=== PATIENT | female | born 1950 | race Caucasian/White ===

== ENCOUNTER 2018-12-29 13:34 | Inpatient (IN) | payer MEDICARE, MEDICAID ==
[2018-12-29] MEDS ORDERED: Acetaminophen 325 MG TAB PO PRN (18:21)
[2018-12-29] MEDS: Clindamycin 150 MG CAP PO SCH (20:27)
[2018-12-29] MEDS: hydrALAZINE 10 MG TAB PO SCH (20:28)
[2018-12-29] MEDS: Potassium Chloride 10 MEQ TAB PO SCH (20:28)
[2018-12-29] MEDS: Famotidine 20 MG TAB PO SCH (20:28)
[2018-12-29] MEDS ORDERED: Prevnar 13-Val Conj/PF 0.5 ML SYRINGE IM ONE (21:00)
[2018-12-29] MEDS: Lantus 1000 UNITS/10 ML VIAL SC SCH (21:19)
[2018-12-29] MEDS ORDERED: Acetaminophen 325 MG TAB PO SCH (23:59)
[2018-12-30] MEDS: Clindamycin 150 MG CAP PO SCH ×4 (03:04→22:16)
[2018-12-30] MEDS: Acetaminophen 325 MG TAB PO PRN ×2 (03:35→10:40)
[2018-12-30 05:25] LABS: ALT (SGPT) 27 U/L (8-55); AST (SGOT) 33 U/L (5-34); Albumin 3.4 g/dL (3.4-4.8); Alkaline Phosphatase 65 U/L (40-150); Anion Gap 13 mmol/L (10-20); BUN (Urea Nitrogen) 12 mg/dL (9.8-20.1); Bilirubin, Total 0.3 mg/dL (0.2-1.2); Calc. Creatinine Clearance 155 mL/min (70-130); Calcium 9.5 mg/dL (7.8-10.44); Carbon Dioxide 29 mmol/L (23-31); Cardiac Risk 4.8 (Less than 4.5); Chloride 102 mmol/L (98-107); Cholesterol 111 mg/dl (< 200 Desired); Estimated GFR-MDRD 62; Glucose 171 mg/dL (80-115); HDL Cholesterol 23 mg/dL (>60 Neg Risk); LDL Cholesterol, Calculated 48 mg/dL; Potassium 3.8 mmol/L (3.5-5.1); Protein, Total 6.4 g/dL (6.0-8.3); Sodium 140 mmol/L (136-145); Triglycerides 202 mg/dL (Less than 150)
[2018-12-30 05:35] LABS: Eosinophils 3 % (0-10); Hemoglobin 12.2 g/dL (12.0-16.0); Hypochromia MODERATE=16-30 cells (100X) (0-5/hpf); Lymphocytes 21 % (21-51); MDiff Complete? YES; Mean Corpuscular HGB CONC 31.4 g/dL (32.0-36.0); Mean Corpuscular Hemoglobin 28.4 pg (27.0-31.0); Mean Corpuscular Volume 90.5 fL (78.0-98.0); Mean Platelet Volume 6.5 fL (7.4-10.4); Monocytes 9 % (0-10); Neutrophil 65 % (42-75); Platelet Count 244 thou/uL (130-400); Platelet Morphology Comment Appears Adequate; RBC Distribution Width 12.7 % (11.5-14.5); RBC Morphology Abnormal; Reactive Lymphocytes 2 % (0-10); White Blood Cell (WBC) Count 5.9 thou/uL (4.8-10.8)
--- NOTE | 2018-12-30 07:59 | HP ---
Admitted at [facility] on 12/29/2018. CHIEF COMPLAINT: Weak following the hospitalization for cellulitis of her pannus. HISTORY OF PRESENT ILLNESS: The patient is a 68-year-old white female, who has a history of hypertension, diabetes type 2, and morbid obesity. She lives in a trailer home by herself and is home confined due to her massive obesity. She can ambulate by holding onto furniture and using a quad walker within her home and able to prepare food that is brought in for her from the food delivery service and her neighbors. The patient has been monitoring her blood pressure, which she said has been very good and she also monitors her blood sugars which were usually running around 115. The patient said that she had developed a fever low grade that gradually chucho to 102, accompanied by extreme weakness and fatigue along with swelling and redness and pain in her abdominal pannus. She called 911 and was taken to [facility] and hospitalized there from 12/24/2018 until 12/29/2018, for a panniculitis involving the right lower abdomen and right inguinal area. She was treated with IV Zosyn and vancomycin. Her blood cultures had no growth x2. She had a urine culture on admission of E. coli with colony count greater than 100,000 with a zhang-sensitivity. The patient showed marked improvement and was switched to oral antibiotics, receiving clindamycin 300 mg every 8 hours. The patient was left very weak and is with marked decline in her functional capabilities such that she would be unable to take care of herself back in her home. Consequently, she was transferred to [facility] for continued care, physical therapy and occupational therapy in an effort to try to improve her general strength and functional capabilities and also to explore post-hospital options other than just returning to her home, where she is by herself with difficulty maintaining. The patient was seen in her room soon after her admission. She was sitting on the side of the bed and in very good spirits and was able to visit with me and relate to me the history what had had happened bringing her in the hospital as outlined above. The patient says she feels a lot better. She has had no more fever. The swelling and redness over the right side of the pannus and ankle areas all gone away. She has been treated in the past for this on several occasions, but this is the first time in several years that this has occurred. PAST MEDICAL HISTORY: Diabetes type 2, the patient's home glucoses are running around 115. Her last hemoglobin A1c was in February 2016 was 7.1. The patient has hypertension and morbid obesity with her maximum weight being around 440. She said she has gradually lost down to this present weight of 355. The patient has a history of hypothyroidism; seborrheic dermatitis, particularly of the ears; history of depression; hyperlipidemia; history of a large ventral hernia; GERD; and fibromyalgia. She has had a right breast biopsy years ago that was benign and only showed fibrocystic changes. She has had a tonsillectomy, cholecystectomy, colonoscopy years ago and EGD that were unremarkable. PRESENT MEDICATIONS: 1. KCl 10 mEq b.i.d. 2. Metformin 1000 mg b.i.d. 3. Glipizide 10 mg b.i.d. 4. Venlafaxine ER 150 mg daily. 5. Rosuvastatin (Crestor) 40 mg daily. 6. Amlodipine 5 mg daily. 7. Acetaminophen 650 mg every 6 hours as needed. 8. Hydralazine 10 mg b.i.d. 9. Levothyroxine 175 mcg daily. 10. Losartan/hydrochlorothiazide 100/12.5 daily. 11. Levemir 10 units subcu daily at bedtime. 12. Aspirin 81 mg daily. 13. Ranitidine 150 mg b.i.d. 14. Clindamycin 300 mg t.i.d., started on 12/29/2018 and will need to continue for a minimum of 10 days. ALLERGIES: CYMBALTA, LYRICA. LYRICA CAUSES SWELLING IN HER FEET. REVIEW OF SYSTEMS: GENERAL: The patient said that she has gradually been losing weight. Her maximum weight was around 440 and now she is down to 355. HEAD AND NECK: No complaints. PULMONARY: No shortness of breath with sitting or lying around. She gets a little winded with exertion. CARDIOVASCULAR: No chest pain. GI: No nausea or vomiting. The patient denies any problems with her bowels. The patient has a very large ventral hernia that she says does not hurt her, but she thinks it has gotten a little bit larger. : No complaints. ENDOCRINE: The patient says she checks her blood sugars fasting, and usually they run around 115. MUSCULOSKELETAL: The patient says she has trouble with her knees and says that if she walks very much, they get very sore. She gets around with the aid of holding on furniture and with the aid of a quad cane at home. She said the therapists at [facility] mentioned that she is not able to fully extend her legs. ADLs: The patient ambulates with holding onto her furniture in her trailer home and with a quad cane, but only short distances. She is able to feed herself. She is continent of urine and stools. She is able to dress herself. Bathe herself by sponge bathing. HABITS: Alcohol, none. Tobacco, none. SOCIAL HISTORY: The patient lives in a trailer home. She was living there with a brother and a sister, both who have . Now, she is there by herself. She has food that is brought to her by the [employer]. Her neighbors also pickle solution maker food and bring to her and the patient does not leave the home because of inability physically. CODE STATUS: DNR. PHYSICAL EXAMINATION: GENERAL: Shows a very friendly 68-year-old white female, who is sitting up on the side of her bed, eating her supper. She is very talkative, oriented to time, place, situation, and recognizes me and correctly calls my name. She appears in no distress. VITAL SIGNS: Shows a temperature of 97.6, pulse of 100, respirations 18, O2 saturation 95%, and blood pressure 144/79. Her weight was 355. Her height is 5 feet and 2 inches. HEENT: Head, normocephalic and atraumatic. Eyes, pupils are equal, round, and reactive. Ears, the patient has some more redness and scaling on the pinna. The TMs are clear. Her nose normal. Mouth and throat normal. NECK: Carotids are equal and strong. No bruits. LUNGS: Clear. HEART: Regular rate. No murmurs. ABDOMEN: Very obese, could not feel any organomegaly. The patient has a very large ventral hernia that is located in the midline and toward the right lower side of the abdomen. There is no overlying redness. It measures approximately 36 x 30 cm. I can hear bowel sounds within the hernia. The hernias are incarcerated. The patient has a large abdominal pannus. The lower portion has changes in the skin that is called peau d'orange, the area where the patient had the cellulitis was on the right inguinal area that extended up onto the right side and inferior aspect of the pannus. This has all resolved. This area is just pink, but is not tender. There is no induration. LOWER EXTREMITIES: There is no edema. The knees cannot fully extend. Her feet are warm. The pulses, dorsalis pedis are 2+ bilateral, did not feel the posterior tibialis. She has some thickening keratotic changes along the medial aspect of the right big toe. IMPRESSION: 1. Generalized weakness and deconditioning. a. The patient had weakness from her massive obesity and osteoarthritis of her knees prior to admission, but with the admission, she has had an increase in her deconditioning and decline in her functional capabilities. b. Requires assistance with her ADLs. 2. Hospitalized at [facility] from 12/24 to 12/29 for panniculitis, treated with 5 days of IV vancomycin and Zosyn and then switched to oral clindamycin. 3. Morbid obesity. a. Maximum weight of 440, now down to 360. b. Complicated by generalized weakness and severe gait abnormality. c. Complicated by severe deconditioning. d. Requiring assistance with all her instrumental ADLs. 4. Hypertension. 5. Diabetes, type 2. 6. Hypothyroidism. 7. Large incarcerated ventral hernia. a. Presently asymptomatic. 8. Panniculitis. a. Required hospitalization from 12/24/2018 to 12/29/2018. b. Resolving now on oral antibiotics as of 12/29/2018. 9. Depression, well controlled. 10. Fibromyalgia. a. Controlled. 11. Hyperlipidemia. 12. Seborrheic dermatitis involving the ears. 13. Severe gait abnormality. a. Secondary to the massive obesity. b. Secondary to osteoarthritis of the knees. PLAN: The patient has been admitted to [facility], where she will undergo physical therapy and occupational therapy in an effort to try to improve her functional capabilities. We will also get Occupational Therapist [facility] to visit with her to explore possible other post-hospital arrangements for her since she is a little insecure on her present situation. We will place her on DVT prophylaxis. See orders. Job ID: [id number] [facility]
[2018-12-30] MEDS: Ketoconazole 2% Cream 15 gm Tube TOP SCH ×2 (08:15→20:01)
[2018-12-30] MEDS: Rosuvastatin 10 MG TAB PO SCH (08:15)
[2018-12-30] MEDS: Aspirin Chewable 81 MG TAB PO SCH (08:15)
[2018-12-30] MEDS: Enoxaparin Sodium 40 MG/0.4 ML SYRINGE SC SCH (08:15)
[2018-12-30] MEDS: metFORMIN 500 MG TAB PO SCH ×2 (08:16→17:22)
[2018-12-30] MEDS: glipiZIDE 5 MG TAB PO SCH ×2 (08:16→17:22)
[2018-12-30] MEDS: Amlodipine 5 MG TAB PO SCH (08:17)
[2018-12-30] MEDS: Venlafaxine HCl XR 150 MG CAP PO SCH (08:17)
[2018-12-30] MEDS: Hydrochlorothiazide 25 MG TAB PO SCH (08:17)
[2018-12-30] MEDS: Potassium Chloride 10 MEQ TAB PO SCH ×2 (08:18→20:02)
[2018-12-30] MEDS: hydrALAZINE 10 MG TAB PO SCH ×2 (08:18→20:00)
[2018-12-30] MEDS: Famotidine 20 MG TAB PO SCH ×2 (08:19→20:00)
[2018-12-30] MEDS: Levothyroxine Sodium 100 MCG TAB PO SCH (08:19)
[2018-12-30] MEDS: Levothyroxine Sodium 75 MCG TAB PO SCH (08:20)
[2018-12-30] MEDS: Losartan 25 MG TAB PO SCH (08:20)
[2018-12-30] MEDS ORDERED: Prevnar 13-Val Conj/PF 0.5 ML SYRINGE IM ONE (09:00)
--- NOTE | 2018-12-30 09:38 | PRG ---
DATE OF SERVICE: 12/30/2018 SUBJECTIVE: The patient says she is doing good this morning. She has had a good night. She is looking forward beginning physical therapy. She is wondering how her knees will react to the therapy since she has had trouble with these knees for a long time. OBJECTIVE: GENERAL: The patient is lying in bed, looks very comfortable. Is talkative, and appears in no distress. VITAL SIGNS: Her temperature is 97, pulse 68, respirations 20, O2 saturation 93 % on room air, and blood pressure 153/77. LUNGS: Clear. HEART: Regular rate. ABDOMEN: The right side of the pannus extending into the inguinal area on the right leg. SKIN: Appears normal. There is no redness nor pinkness nor induration. EXTREMITIES: Lower extremities, no edema. LABORATORY DATA: Her lab H and H is 12.2 and 38.9, white blood cell count 5900 with 65% segs, 21% lymphocytes, platelet count of 244,000. Her sodium is 140, potassium 3.8, BUN 12, creatinine 0.91, GFR 62, FBS 171. Her FBS this morning was 158. Her cholesterol 111, triglycerides 202, LDL 48, TSH 8.2, hemoglobin A1c pending. ASSESSMENT: 1. Generalized weakness and deconditioning. a. The patient had weakness from her massive obesity and osteoarthritis of her knees prior to admission, but with the admission, she has had an increase in her deconditioning and decline in her functional capabilities. b. Requires assistance with her ADLs. c. Physical Therapy will begin this morning of 12/30/2018. 2. Hospitalized at [facility] from 12/24 to 12/29 for panniculitis, treated with 5 days of IV vancomycin and Zosyn and then switched to oral clindamycin. 3. Morbid obesity. a. Maximum weight of 440, now down to 360. b. Complicated by generalized weakness and severe gait abnormality. c. Complicated by severe deconditioning. d. Requiring assistance with all her instrumental ADLs. 4. Hypertension. 5. Diabetes, type 2. 6. Hypothyroidism. 7. Large incarcerated ventral hernia. a. Presently asymptomatic. 8. Panniculitis. a. Required hospitalization from 12/24/2018 to 12/29/2018. b. Resolving now on oral antibiotics as of 12/29/2018. c. Resolved with no signs of recurrence as of 12/30/2018. 9. Depression, well controlled. 10. Fibromyalgia. a. Controlled. 11. Hyperlipidemia. 12. Seborrheic dermatitis involving the ears. 13. Severe gait abnormality. a. Secondary to the massive obesity. b. Secondary to osteoarthritis of the knees. 14. Bilateral knee pain with weightbearing, probably secondary to arthritis. PLAN: We will continue present care. We will complete the 10-day course of clindamycin. PT and OT will work with her. We will x-ray both knees and just see how advanced her arthritis is. Job ID: [id number] [facility]
--- NOTE | 2018-12-30 09:40 | RAD ---
THREE VIEWS OF THE RIGHT KNEE: DATE: 12/30/2018. COMPARISON: None. HISTORY: Pain with weight bearing. FINDINGS: There is moderate lateral compartment narrowing. There is severe medial compartment narrowing. Ther e is prominent osteophyte formation of the medial and lateral tibial plateau and the medial and later al femoral condyle. No acute fracture or evidence of dislocation is seen. There is severe patellofe moral joint space narrowing with bulky osteophytosis. No knee joint effusion. IMPRESSION: Severe multicompartment degenerative joint disease of right knee. POS: [facility]
--- NOTE | 2018-12-30 09:49 | RAD ---
THREE VIEWS LEFT KNEE: INDICATION: Left knee pain. COMPARISON: None. FINDINGS: There is left knee osteoarthrosis, particularly involving the medial femoral tibial patellofemoral co mpartments. No joint capsular distention is evident. No acute fracture is demonstrated. IMPRESSION: Severe osteoarthrosis of the left knee. POS: [facility]
[2018-12-30 12:17] LABS: Hemoglobin A1c 7.5 % (4.0-6.0)
[2018-12-30] MEDS ORDERED: Ondansetron ODT 4 MG TAB PO PRN (15:02)
[2018-12-30] MEDS: traMADol HCl 50 MG TAB PO PRN (15:11)
[2018-12-30] MEDS: Lantus 1000 UNITS/10 ML VIAL SC SCH (19:59)
[2018-12-31] MEDS: Clindamycin 150 MG CAP PO SCH ×3 (06:00→22:11)
[2018-12-31] MEDS: glipiZIDE 5 MG TAB PO SCH ×2 (09:05→17:13)
[2018-12-31] MEDS: Aspirin Chewable 81 MG TAB PO SCH (09:06)
[2018-12-31] MEDS: Amlodipine 5 MG TAB PO SCH (09:06)
[2018-12-31] MEDS: Potassium Chloride 10 MEQ TAB PO SCH ×2 (09:07→22:12)
[2018-12-31] MEDS: Venlafaxine HCl XR 150 MG CAP PO SCH (09:07)
[2018-12-31] MEDS: Levothyroxine Sodium 75 MCG TAB PO SCH (09:07)
[2018-12-31] MEDS: Hydrochlorothiazide 25 MG TAB PO SCH (09:07)
[2018-12-31] MEDS: Levothyroxine Sodium 100 MCG TAB PO SCH (09:07)
[2018-12-31] MEDS: hydrALAZINE 10 MG TAB PO SCH ×2 (09:08→22:12)
[2018-12-31] MEDS: metFORMIN 500 MG TAB PO SCH ×2 (09:08→17:13)
[2018-12-31] MEDS: Losartan 25 MG TAB PO SCH (09:09)
[2018-12-31] MEDS: Enoxaparin Sodium 40 MG/0.4 ML SYRINGE SC SCH (09:09)
[2018-12-31] MEDS: Rosuvastatin 10 MG TAB PO SCH (09:09)
[2018-12-31] MEDS: Glucosamine/D3/Boswellia Serra [Glucosamine Daily Complex Tab] PO SCH (09:10)
[2018-12-31] MEDS: Ketoconazole 2% Cream 15 gm Tube TOP SCH ×2 (09:10→22:13)
[2018-12-31] MEDS: Famotidine 20 MG TAB PO SCH ×2 (09:13→22:13)
--- NOTE | 2018-12-31 11:42 | PRG ---
DATE OF SERVICE: 12/31/2018 SUBJECTIVE: The patient said she has had a lot of pain in her left hip, particularly if she has to sit up for any length of time. The patient said she was having trouble with this before this recent hospitalization. The patient said she did work with Physical Therapy yesterday and she was able to walk 15-feet and required minimal help with transfer and required supervision OBJECTIVE: GENERAL: The patient is lying in bed. She looks a little uncomfortable. VITAL SIGNS: Her temperature is 96.8, pulse 88, respirations 18, O2 saturation 93% on room air, blood pressure 138/62. LUNGS: Clear. HEART: Regular rate. ABDOMEN: The pannus of the abdomen has no redness. There is no swelling on that right lower anterior aspect nor any redness in the inguinal area. She still has incarcerated ventral hernia, which is nontender. LABORATORY DATA: Her FBS was 142, TSH 8.2, hemoglobin A1c 7.5. IMAGING DATA: X-ray of the knees, right knee showed severe multicompartment degenerative joint disease. Left knee also showed severe arthritis of the left knee. ASSESSMENT: 1. Generalized weakness and deconditioning. a. The patient had weakness from her massive obesity and osteoarthritis of her knees prior to admission, but with the admission, she has had an increase in her deconditioning and decline in her functional capabilities. b. Requires assistance with her ADLs. c. Improved. Has been able to walk up to 30 feet as of 12/31/2018. 2. Hospitalized at [facility] from 12/24 to 12/29 for panniculitis, treated with 5 days of IV vancomycin and Zosyn and then switched to oral clindamycin. 3. Morbid obesity. a. Maximum weight of 440, now down to 360. b. Complicated by generalized weakness and severe gait abnormality. c. Complicated by severe deconditioning. d. Requiring assistance with all her instrumental ADLs. e. Complicated by severe inched arthritis of the knees that are now bone on bone. 4. Hypertension. 5. Diabetes, type 2. a. Controlled with hemoglobin A1c of 7.5. 6. Hypothyroidism. 7. Large incarcerated ventral hernia. a. Presently asymptomatic. 8. Panniculitis. a. Required hospitalization from 12/24/2018 to 12/29/2018. b. Resolving now on oral antibiotics as of 12/29/2018. c. Resolved with no signs of recurrence as of 12/31/2018. 9. Depression, well controlled. 10. Fibromyalgia. a. Controlled. 11. Hyperlipidemia. 12. Seborrheic dermatitis involving the ears. 13. Severe gait abnormality. a. Secondary to the massive obesity. b. Secondary to osteoarthritis of the knees. 14. Severe osteoarthritis of the knees that are bone on bone, right worse than the left. 15. Left hip pain. PLAN: We will continue PT. The patient will have limited ability to walk any distance due to her severe arthritis. We will have to be cautious that the physical therapy does not aggravate her arthritis. Presently, she is having a lot of left hip pain. We will x-ray the hip. Suspect that this will also show advanced arthritic change. Job ID: [id number] [facility]
--- NOTE | 2018-12-31 15:18 | RAD ---
TWO VIEW LEFT HIP: INDICATION: Chronic hip pain. FINDINGS: There is moderate osteoarthritis of the left hip with joint space narrowing and osteophytosis. No fr acture or dislocation. IMPRESSION: Moderate left hip joint osteoarthritis. POS: [facility]
[2018-12-31] MEDS: Acetaminophen 325 MG TAB PO PRN (18:12)
[2018-12-31] MEDS: Lantus 1000 UNITS/10 ML VIAL SC SCH (22:10)
[2019-01-01] MEDS: Clindamycin 150 MG CAP PO SCH ×3 (05:29→21:06)
[2019-01-01] MEDS: Levothyroxine Sodium 75 MCG TAB PO SCH (08:53)
[2019-01-01] MEDS: Potassium Chloride 10 MEQ TAB PO SCH ×2 (08:53→21:07)
[2019-01-01] MEDS: glipiZIDE 5 MG TAB PO SCH ×2 (08:53→17:01)
[2019-01-01] MEDS: Acetaminophen 325 MG TAB PO PRN ×2 (08:54→18:58)
[2019-01-01] MEDS: metFORMIN 500 MG TAB PO SCH ×2 (08:54→17:01)
[2019-01-01] MEDS: Levothyroxine Sodium 100 MCG TAB PO SCH (08:54)
[2019-01-01] MEDS: Hydrochlorothiazide 25 MG TAB PO SCH (08:54)
[2019-01-01] MEDS: Losartan 25 MG TAB PO SCH (08:55)
[2019-01-01] MEDS: Famotidine 20 MG TAB PO SCH ×2 (08:55→21:07)
[2019-01-01] MEDS: hydrALAZINE 10 MG TAB PO SCH ×2 (08:55→21:07)
[2019-01-01] MEDS: Enoxaparin Sodium 40 MG/0.4 ML SYRINGE SC SCH (08:56)
[2019-01-01] MEDS: Amlodipine 5 MG TAB PO SCH (08:56)
[2019-01-01] MEDS: Aspirin Chewable 81 MG TAB PO SCH (08:56)
[2019-01-01] MEDS: Rosuvastatin 10 MG TAB PO SCH (08:56)
[2019-01-01] MEDS: Glucosamine/D3/Boswellia Serra [Glucosamine Daily Complex Tab] PO SCH (08:57)
[2019-01-01] MEDS: Ketoconazole 2% Cream 15 gm Tube TOP SCH ×2 (08:58→21:06)
[2019-01-01] MEDS: Venlafaxine HCl XR 150 MG CAP PO SCH (08:58)
[2019-01-01] MEDS: Lantus 1000 UNITS/10 ML VIAL SC SCH (21:07)
[2019-01-02] MEDS: Clindamycin 150 MG CAP PO SCH ×3 (06:05→22:11)
[2019-01-02] MEDS: metFORMIN 500 MG TAB PO SCH ×2 (08:18→16:38)
[2019-01-02] MEDS: Acetaminophen 325 MG TAB PO PRN (08:18)
[2019-01-02] MEDS: glipiZIDE 5 MG TAB PO SCH ×2 (08:18→16:38)
[2019-01-02] MEDS: Amlodipine 5 MG TAB PO SCH (09:09)
[2019-01-02] MEDS: Aspirin Chewable 81 MG TAB PO SCH (09:10)
[2019-01-02] MEDS: Enoxaparin Sodium 40 MG/0.4 ML SYRINGE SC SCH (09:11)
[2019-01-02] MEDS: hydrALAZINE 10 MG TAB PO SCH ×2 (09:12→22:09)
[2019-01-02] MEDS: Famotidine 20 MG TAB PO SCH ×2 (09:12→22:09)
[2019-01-02] MEDS: Hydrochlorothiazide 25 MG TAB PO SCH (09:13)
[2019-01-02] MEDS: Ketoconazole 2% Cream 15 gm Tube TOP SCH ×2 (09:14→22:12)
[2019-01-02] MEDS: Levothyroxine Sodium 100 MCG TAB PO SCH (09:15)
[2019-01-02] MEDS: Levothyroxine Sodium 75 MCG TAB PO SCH (09:15)
[2019-01-02] MEDS: Losartan 25 MG TAB PO SCH (09:16)
[2019-01-02] MEDS: Glucosamine/D3/Boswellia Serra [Glucosamine Daily Complex Tab] PO SCH (09:17)
[2019-01-02] MEDS: Potassium Chloride 10 MEQ TAB PO SCH ×2 (09:17→22:10)
[2019-01-02] MEDS: Venlafaxine HCl XR 150 MG CAP PO SCH (09:18)
[2019-01-02] MEDS: Rosuvastatin 10 MG TAB PO SCH (09:18)
[2019-01-02] MEDS: Calcium Carbonate 500 MG ChewTAB PO PRN ×2 (14:41→18:59)
[2019-01-02] MEDS: Lantus 1000 UNITS/10 ML VIAL SC SCH (22:11)
[2019-01-03] MEDS: Clindamycin 150 MG CAP PO SCH ×4 (05:22→20:19)
[2019-01-03] MEDS: Glucosamine/D3/Boswellia Serra [Glucosamine Daily Complex Tab] PO SCH (08:20)
[2019-01-03] MEDS: Losartan 25 MG TAB PO SCH (08:21)
[2019-01-03] MEDS: Potassium Chloride 10 MEQ TAB PO SCH ×2 (08:21→20:19)
[2019-01-03] MEDS: glipiZIDE 5 MG TAB PO SCH ×2 (08:22→17:19)
[2019-01-03] MEDS: Amlodipine 5 MG TAB PO SCH (08:22)
[2019-01-03] MEDS: metFORMIN 500 MG TAB PO SCH ×2 (08:22→17:19)
[2019-01-03] MEDS: Levothyroxine Sodium 75 MCG TAB PO SCH (08:22)
[2019-01-03] MEDS: Levothyroxine Sodium 100 MCG TAB PO SCH (08:22)
[2019-01-03] MEDS: hydrALAZINE 10 MG TAB PO SCH ×2 (08:23→20:19)
[2019-01-03] MEDS: Famotidine 20 MG TAB PO SCH (08:23)
[2019-01-03] MEDS: Hydrochlorothiazide 25 MG TAB PO SCH (08:23)
[2019-01-03] MEDS: Aspirin Chewable 81 MG TAB PO SCH (08:23)
[2019-01-03] MEDS: Ketoconazole 2% Cream 15 gm Tube TOP SCH ×2 (08:24→20:20)
[2019-01-03] MEDS: Venlafaxine HCl XR 150 MG CAP PO SCH (08:24)
[2019-01-03] MEDS: Rosuvastatin 10 MG TAB PO SCH (08:24)
[2019-01-03] MEDS: Enoxaparin Sodium 40 MG/0.4 ML SYRINGE SC SCH (08:24)
[2019-01-03] MEDS: Acetaminophen 325 MG TAB PO PRN (10:26)
[2019-01-03] MEDS: Calcium Carbonate 500 MG ChewTAB PO PRN (12:22)
--- NOTE | 2019-01-03 12:23 | PRG ---
DATE OF SERVICE: 01/01/2019 SUBJECTIVE: The patient says she is doing good. She said that she is working with Physical Therapy and she uses a walker to help ambulate. Yesterday, she walked 30 feet x2 with the use of a rolling walker and standby assistance. She transfers with standby assistance. The patient said they did get a large reclining chair which she can sit in and she is a lot more comfortable. Yesterday, she spent 3 hours in the chair. These are a lot more comfortable than the smaller chairs and allow her to sit for longer periods. OBJECTIVE: GENERAL: The patient is lying in bed. She is alert, talkative, appears very comfortable. VITAL SIGNS: Temperature 97.1, pulse 68, respirations 18, O2 saturation 94% on room air, blood pressure 124/62. LUNGS: Clear. HEART: Regular rate. EXTREMITIES: No edema. The pannus has no redness. Her weight is stable at 355. IMAGING STUDIES: X-ray of her left hip showed moderate arthritis of the hip. ASSESSMENT: 1. Generalized weakness and deconditioning. a. The patient had weakness from her massive obesity and osteoarthritis of her knees prior to admission, but with the admission, she has had an increase in her deconditioning and decline in her functional capabilities. b. Requires assistance with her ADLs. c. Improved, he has been able to walk up to 30 feet x2 with a rolling walker and transfer with standby assistance as of 01/01/2019. 2. Hospitalized at [facility] from 12/24 to 12/29 for panniculitis, treated with 5 days of IV vancomycin and Zosyn and then switched to oral clindamycin. 3. Morbid obesity. a. Maximum weight of 440, now down to 360. b. Complicated by generalized weakness and severe gait abnormality. c. Complicated by severe deconditioning. d. Requiring assistance with all her instrumental ADLs. e. Complicated by severe osteoarthritis of the knees that are bone on bone, right worse than left. f. Complicated by moderate arthritis of the left hip. 4. Hypertension. 5. Diabetes, type 2. a. Controlled with hemoglobin A1c of 7.5. 6. Hypothyroidism. 7. Large incarcerated ventral hernia. a. Presently asymptomatic. 8. Panniculitis. a. Required hospitalization from 12/24/2018 to 12/29/2018. b. Resolving now on oral antibiotics as of 12/29/2018. c. Resolved with no signs of recurrence as of 01/01/2019. 9. Depression, well controlled. 10. Fibromyalgia. a. Controlled. 11. Hyperlipidemia. 12. Seborrheic dermatitis involving the ears. 13. Severe gait abnormality. a. Secondary to the massive obesity. b. Secondary to osteoarthritis of the knees. 14. Severe osteoarthritis of the knees that are bone on bone, right worse than the left. 15. Left hip pain. a. Secondary to moderate arthritis in the left hip. b. Pain improved as of 01/01/2019. PLAN: The patient is doing better as she continues to work to try to reduce her weight. She is doing well with Physical Therapy. The patient should continue to work within her tolerance of what the arthritis in the knees and hip will allow. At this time, she is not a good candidate for any type of operative intervention. She has had no signs of any recurrence of the panniculitis. Job ID: [id number] [facility]
--- NOTE | 2019-01-03 12:25 | PRG ---
DATE OF SERVICE: 01/03/2019 SUBJECTIVE: The patient says she is doing pretty good. She said she is having some acid reflux. She said at home she takes the Zantac instead of the Pepcid and it works better. While in the hospital at [facility], she received pantoprazole that seemed to also work well. This Pepcid is not working as well. Her left hip is a little better today. This is something she has had trouble with for quite a while with too much activity, she has more pain. She has visit with [employer] and will revisit again with them again exploring help in the home and also other arrangements such as long term. OBJECTIVE: GENERAL: The patient is sitting up in bed, alert, talkative, appears very comfortable, in no distress. VITAL SIGNS: Her temp is 97.6, pulse 82, respirations 20, O2 saturation 95%, blood pressure was 176/104, repeat was 158/123, suspect there was some air in this. The patient has such large arms, even the large cuff may give some fictitious readings. Her previous blood pressure readings have been in 156/65 and 140s, 130s, 120s systolic. We will just observe this. I suspect it is more cuff related. LUNGS: Clear. HEART: Has regular rate. ABDOMEN: She has the incarcerated ventral hernia, but it is nontender, seems a little smaller than what it had been. The pannus has a pink rubor with dependency and some mild Peau d'orange changes to the dependent areas of the skin. There is no increased heat nor is there any bright redness. LOWER EXTREMITIES: There is no edema. LABORATORY DATA: FBS this morning 133. ASSESSMENT: 1. Generalized weakness and deconditioning. a. The patient had weakness from her massive obesity and osteoarthritis of her knees prior to admission, but with the admission, she has had an increase in her deconditioning and decline in her functional capabilities. b. Requires assistance with her ADLs. c. Improved. Has been able to walk up to 30 feet as of 01/03/2019. 2. Hospitalized at [facility] from 12/24 to 12/29 for panniculitis, treated with 5 days of IV vancomycin and Zosyn and then switched to oral clindamycin. 3. Morbid obesity. a. Maximum weight of 440, now down to 360. b. Complicated by generalized weakness and severe gait abnormality. c. Complicated by severe deconditioning. d. Requiring assistance with all her instrumental ADLs. e. Complicated by severe inched arthritis of the knees that are now bone on bone. f. Complicated by moderate with symptomatic arthritis of the left hip. 4. Hypertension. a. Blood pressure reading high this morning, probably secondary to cuff size with the patient's very obese arms as of 01/03/2019. 5. Diabetes, type 2. a. Controlled with hemoglobin A1c of 7.5. 6. Hypothyroidism. 7. Large incarcerated ventral hernia. a. Presently asymptomatic. 8. Panniculitis. a. Required hospitalization from 12/24/2018 to 12/29/2018. b. Resolving now on oral antibiotics as of 12/29/2018. c. Resolved with no signs of recurrence as of 01/03/2019. 9. Depression, well controlled. 10. Fibromyalgia. a. Controlled. 11. Hyperlipidemia. 12. Seborrheic dermatitis involving the ears. 13. Severe gait abnormality. a. Secondary to the massive obesity. b. Secondary to osteoarthritis of the knees. 14. Severe osteoarthritis of the knees that are bone on bone, right worse than the left. 15. Moderate symptomatic arthritis of the left hip. 16. Gastroesophageal reflux disease. a. Mild increased symptoms on the Pepcid, previously controlled on Zantac and pantoprazole. PLAN: Continue present care. Physical Therapy will continue to work with her. We will have to be cautious and try to seek a point of improvement without aggravating her arthritis. She, at this point, would be a very poor surgical candidate with her size. We will stop the Pepcid and place her on Protonix since she has had some increased symptoms. [employer] will continue to work with her to explore post hospital care. We will place the patient on pantoprazole and stop the Pepcid. Job ID: [id number] [facility]
[2019-01-03] MEDS: Lantus 1000 UNITS/10 ML VIAL SC SCH (20:20)
[2019-01-04] MEDS: Clindamycin 150 MG CAP PO SCH ×3 (05:40→21:27)
[2019-01-04] MEDS: Calcium Carbonate 500 MG ChewTAB PO PRN ×2 (06:14→12:51)
[2019-01-04] MEDS: Acetaminophen 325 MG TAB PO PRN ×2 (09:13→22:52)
[2019-01-04] MEDS: Rosuvastatin 10 MG TAB PO SCH (09:13)
[2019-01-04] MEDS: Levothyroxine Sodium 75 MCG TAB PO SCH (09:14)
[2019-01-04] MEDS: Losartan 25 MG TAB PO SCH (09:14)
[2019-01-04] MEDS: Levothyroxine Sodium 100 MCG TAB PO SCH (09:14)
[2019-01-04] MEDS: glipiZIDE 5 MG TAB PO SCH ×2 (09:15→17:19)
[2019-01-04] MEDS: metFORMIN 500 MG TAB PO SCH ×2 (09:15→17:19)
[2019-01-04] MEDS: Aspirin Chewable 81 MG TAB PO SCH (09:15)
[2019-01-04] MEDS: Potassium Chloride 10 MEQ TAB PO SCH ×2 (09:16→21:27)
[2019-01-04] MEDS: hydrALAZINE 10 MG TAB PO SCH ×2 (09:16→21:28)
[2019-01-04] MEDS: Amlodipine 5 MG TAB PO SCH (09:16)
[2019-01-04] MEDS: Venlafaxine HCl XR 150 MG CAP PO SCH (09:16)
[2019-01-04] MEDS: Enoxaparin Sodium 40 MG/0.4 ML SYRINGE SC SCH (09:17)
[2019-01-04] MEDS: Ketoconazole 2% Cream 15 gm Tube TOP SCH ×2 (09:17→21:28)
[2019-01-04] MEDS: Hydrochlorothiazide 25 MG TAB PO SCH (09:18)
[2019-01-04] MEDS: Glucosamine/D3/Boswellia Serra [Glucosamine Daily Complex Tab] PO SCH (09:18)
[2019-01-04] MEDS: Lantus 1000 UNITS/10 ML VIAL SC SCH (21:30)
[2019-01-05] MEDS: Clindamycin 150 MG CAP PO SCH ×3 (05:44→21:01)
[2019-01-05] MEDS ORDERED: Levothyroxine Sodium 75 MCG TAB PO SCH (07:45)
[2019-01-05] MEDS ORDERED: Levothyroxine Sodium 100 MCG TAB PO SCH (07:45)
[2019-01-05] MEDS: Amlodipine 5 MG TAB PO SCH (08:27)
[2019-01-05] MEDS: Rosuvastatin 10 MG TAB PO SCH (08:27)
[2019-01-05] MEDS: Aspirin Chewable 81 MG TAB PO SCH (08:27)
[2019-01-05] MEDS: Losartan 25 MG TAB PO SCH (08:27)
[2019-01-05] MEDS: Potassium Chloride 10 MEQ TAB PO SCH ×2 (08:28→21:03)
[2019-01-05] MEDS: Hydrochlorothiazide 25 MG TAB PO SCH (08:28)
[2019-01-05] MEDS: hydrALAZINE 10 MG TAB PO SCH ×2 (08:28→21:02)
[2019-01-05] MEDS: metFORMIN 500 MG TAB PO SCH ×2 (08:29→16:51)
[2019-01-05] MEDS: Venlafaxine HCl XR 150 MG CAP PO SCH (08:29)
[2019-01-05] MEDS: glipiZIDE 5 MG TAB PO SCH ×2 (08:30→16:51)
[2019-01-05] MEDS: Glucosamine/D3/Boswellia Serra [Glucosamine Daily Complex Tab] PO SCH (08:30)
[2019-01-05] MEDS: Enoxaparin Sodium 40 MG/0.4 ML SYRINGE SC SCH (08:30)
[2019-01-05] MEDS: Ketoconazole 2% Cream 15 gm Tube TOP SCH ×2 (08:32→21:02)
--- NOTE | 2019-01-05 08:42 | PRG ---
DATE OF SERVICE: 01/05/2019 SUBJECTIVE: The patient says she is doing good. She is making progress with her physical therapy. Yesterday, she walked up to 80 feet a couple of times with a rolling walker and standby assistance. The patient said that her knees and left hip are about the same. If she overdoes the activities, she will experience more pain. This morning, she is feeling well. She said she has had no trouble with any redness or swelling in her pannus. OBJECTIVE: GENERAL: The patient is sitting up on the side of the bed, is alert, talkative, appears very comfortable and in no distress. VITAL SIGNS: Her temperature is 97, pulse 65, respirations 20, O2 saturation 92% , blood pressure 121/57. LUNGS: Clear. HEART: Regular rate. EXTREMITIES: No edema. LABORATORY DATA: Her FBS this morning was 132. ASSESSMENT: 1. Generalized weakness and deconditioning. a. The patient had weakness from her massive obesity and osteoarthritis of her knees prior to admission, but with the admission, she has had an increase in her deconditioning and decline in her functional capabilities. b. Requires assistance with her ADLs. c. Improved. Walking up to 80 feet with a rolling walker and standby assistance as of 01/05/2019. 2. Hospitalized at [facility] from 12/24 to 12/29 for panniculitis, treated with 5 days of IV vancomycin and Zosyn and then switched to oral clindamycin. 3. Morbid obesity. a. Maximum weight of 440, now down to 360. b. Complicated by generalized weakness and severe gait abnormality. c. Complicated by severe deconditioning. d. Requiring assistance with all her instrumental ADLs. e. Complicated by severe inched arthritis of the knees that are now bone on bone. f. Complicated by moderate with symptomatic arthritis of the left hip. 4. Hypertension. a. Well controlled as of 01/05/2019. 5. Diabetes, type 2. a. Controlled with hemoglobin A1c of 7.5. 6. Hypothyroidism. 7. Large incarcerated ventral hernia. a. Presently asymptomatic. 8. Panniculitis. a. Required hospitalization from 12/24/2018 to 12/29/2018. b. Resolving now on oral antibiotics as of 12/29/2018. c. Resolved with no signs of recurrence as of 01/05/2019. 9. Depression, well controlled. 10. Fibromyalgia. a. Controlled. 11. Hyperlipidemia. 12. Seborrheic dermatitis involving the ears. 13. Severe gait abnormality. a. Secondary to the massive obesity. b. Secondary to osteoarthritis of the knees. 14. Severe osteoarthritis of the knees that are bone on bone, right worse than the left. 15. Moderate symptomatic arthritis of the left hip. 16. Gastroesophageal reflux disease. a. Mild increased symptoms on the Pepcid, previously controlled on Zantac and pantoprazole. PLAN: Continue present care. Continue PT. Job ID: [id number] [facility]
[2019-01-05] MEDS: Acetaminophen 325 MG TAB PO PRN (12:42)
[2019-01-05] MEDS: traMADol HCl 50 MG TAB PO PRN ×2 (14:25→22:50)
[2019-01-05] MEDS: Lantus 1000 UNITS/10 ML VIAL SC SCH (21:01)
[2019-01-06] MEDS: Levothyroxine Sodium 100 MCG TAB PO SCH (05:37)
[2019-01-06] MEDS: Clindamycin 150 MG CAP PO SCH ×3 (05:37→21:22)
[2019-01-06] MEDS: Levothyroxine Sodium 75 MCG TAB PO SCH (05:38)
[2019-01-06] MEDS: Enoxaparin Sodium 40 MG/0.4 ML SYRINGE SC SCH (08:16)
[2019-01-06] MEDS: Glucosamine/D3/Boswellia Serra [Glucosamine Daily Complex Tab] PO SCH (08:16)
[2019-01-06] MEDS: Rosuvastatin 10 MG TAB PO SCH (08:17)
[2019-01-06] MEDS: Hydrochlorothiazide 25 MG TAB PO SCH (08:18)
[2019-01-06] MEDS: Aspirin Chewable 81 MG TAB PO SCH (08:18)
[2019-01-06] MEDS: metFORMIN 500 MG TAB PO SCH ×2 (08:19→17:05)
[2019-01-06] MEDS: Losartan 25 MG TAB PO SCH (08:20)
[2019-01-06] MEDS: glipiZIDE 5 MG TAB PO SCH ×2 (08:20→17:05)
[2019-01-06] MEDS: hydrALAZINE 10 MG TAB PO SCH ×2 (08:21→21:21)
[2019-01-06] MEDS: Ketoconazole 2% Cream 15 gm Tube TOP SCH ×2 (08:21→21:21)
[2019-01-06] MEDS: Potassium Chloride 10 MEQ TAB PO SCH ×2 (08:21→21:22)
[2019-01-06] MEDS: Amlodipine 5 MG TAB PO SCH (08:21)
[2019-01-06] MEDS: Venlafaxine HCl XR 150 MG CAP PO SCH (08:21)
[2019-01-06] MEDS: traMADol HCl 50 MG TAB PO PRN ×2 (08:32→21:27)
--- NOTE | 2019-01-06 09:25 | PRG ---
DATE OF SERVICE: 01/06/2019 SUBJECTIVE: The patient says she is a little sore this morning in her left hip and her knees. The patient said she walked a lot further yesterday than she had. Has already been up and walked some this morning and just has aching in that hip and knees. Otherwise, she is doing fine. OBJECTIVE: GENERAL: The patient is sitting in bed, has a little grimace on her face, but not in any acute distress, but does look uncomfortable. She has the tramadol that she takes for pain that does help. VITAL SIGNS: Show a temperature 96.9, pulse 89, respirations 20, O2 saturation 96% on room air, blood pressure 131/66. LUNGS: Clear. HEART: Regular rate. EXTREMITIES: No edema. LABORATORY DATA: Her FBS this morning is pending. ASSESSMENT: 1. Generalized weakness and deconditioning. a. The patient had weakness from her massive obesity and osteoarthritis of her knees prior to admission, but with the admission, she has had an increase in her deconditioning and decline in her functional capabilities. b. Requires assistance with her ADLs. c. Improved. Walking further with a rolling walker and standby assistance, but this is creating some increased pain in her severely arthritic knees and hip as of 01/06/2019. 2. Hospitalized at [facility] from 12/24 to 12/29 for panniculitis, treated with 5 days of IV vancomycin and Zosyn and then switched to oral clindamycin. 3. Morbid obesity. a. Maximum weight of 440, now down to 360. b. Complicated by generalized weakness and severe gait abnormality. c. Complicated by severe deconditioning. d. Requiring assistance with all her instrumental ADLs. e. Complicated by severe inched arthritis of the knees that are now bone on bone. f. Complicated by moderate with symptomatic arthritis of the left hip. 4. Hypertension. a. Well controlled as of 01/06/2019. 5. Diabetes, type 2. a. Controlled with hemoglobin A1c of 7.5. 6. Hypothyroidism. 7. Large incarcerated ventral hernia. a. Presently asymptomatic. 8. Panniculitis. a. Required hospitalization from 12/24/2018 to 12/29/2018. b. Resolving now on oral antibiotics as of 12/29/2018. c. Resolved with no signs of recurrence as of 01/05/2019. 9. Depression, well controlled. 10. Fibromyalgia. a. Controlled. 11. Hyperlipidemia. 12. Seborrheic dermatitis involving the ears. 13. Severe gait abnormality. a. Secondary to the massive obesity. b. Secondary to osteoarthritis of the knees. 14. Severe osteoarthritis of the knees that are bone on bone, right worse than the left. a. Some increased symptoms from her increased ambulation as of 01/06/2019. 15. Moderate symptomatic arthritis of the left hip. a. Some increased symptoms in the left hip from an increased ambulation as of 01/06/2019. 16. Gastroesophageal reflux disease. a. Mild increased symptoms on the Pepcid, previously controlled on Zantac and pantoprazole. PLAN: I have visited with Physical Therapy and asked them to decrease some of her lengths of walks when she is having the increased pain. They will also look and see, if they have some other modalities that may help some with her discomfort, i.e. , the heat and cold packs. They will assess and see what they have to offer. The patient has really very advanced arthritis and has limited ability to how much she can be pushed with therapy. We will continue other medications. Job ID: [id number] [facility]
[2019-01-06] MEDS: Lantus 1000 UNITS/10 ML VIAL SC SCH (21:23)
[2019-01-07] MEDS: Clindamycin 150 MG CAP PO SCH ×3 (05:40→21:05)
[2019-01-07] MEDS: Levothyroxine Sodium 100 MCG TAB PO SCH (05:41)
[2019-01-07] MEDS: Levothyroxine Sodium 75 MCG TAB PO SCH (05:41)
[2019-01-07] MEDS: Glucosamine/D3/Boswellia Serra [Glucosamine Daily Complex Tab] PO SCH (08:33)
[2019-01-07] MEDS: Aspirin Chewable 81 MG TAB PO SCH (08:33)
[2019-01-07] MEDS: Hydrochlorothiazide 25 MG TAB PO SCH (08:33)
[2019-01-07] MEDS: Rosuvastatin 10 MG TAB PO SCH (08:38)
[2019-01-07] MEDS: metFORMIN 500 MG TAB PO SCH ×2 (08:39→16:58)
[2019-01-07] MEDS: Losartan 25 MG TAB PO SCH (08:39)
[2019-01-07] MEDS: Potassium Chloride 10 MEQ TAB PO SCH ×2 (08:39→20:01)
[2019-01-07] MEDS: Amlodipine 5 MG TAB PO SCH (08:39)
[2019-01-07] MEDS: Venlafaxine HCl XR 150 MG CAP PO SCH (08:39)
[2019-01-07] MEDS: hydrALAZINE 10 MG TAB PO SCH ×2 (08:40→20:01)
[2019-01-07] MEDS: glipiZIDE 5 MG TAB PO SCH ×2 (08:40→16:58)
[2019-01-07] MEDS: Ketoconazole 2% Cream 15 gm Tube TOP SCH ×2 (08:40→19:56)
--- NOTE | 2019-01-07 09:53 | PRG ---
DATE OF SERVICE: 01/07/2019 SUBJECTIVE: The patient says she is doing good today. She has a little soreness in her left hip. She is working with [employer] and exploring post hospital care and living arrangements. She is due to have someone come in [facility] to visit with them for consideration of move there, whether it be temporary or permanent. Yesterday, she did not walk since the day before, the walking seemed to aggravate her arthritis. Today, she will probably be able to walk some. OBJECTIVE: GENERAL: The patient is sitting on the side of her bed. She is alert , talkative, appears very comfortable, and in no distress. VITAL SIGNS: Her temperature is 97.2, her pulse is 77, blood pressure 127/58. Her weight was 354 on 01/05. LUNGS: Clear. HEART: Regular rate. ABDOMEN: The patient said her pannus is not red nor sore. LABORATORY DATA: Her FBS this morning was 138. ASSESSMENT: 1. Generalized weakness and deconditioning. a. The patient had weakness from her massive obesity and osteoarthritis of her knees prior to admission, but with the admission, she has had an increase in her deconditioning and decline in her functional capabilities. b. Requires assistance with her ADLs. c. Stable as of 01/07/2019. Yesterday's rest help the pain she was having in the left hip and knees from the PT. Today, she will probably be able to re-work with the therapist. 2. Hospitalized at [facility] from 12/24 to 12/29 for panniculitis, treated with 5 days of IV vancomycin and Zosyn and then switched to oral clindamycin. 3. Morbid obesity. a. Maximum weight of 440, now down to 360. b. Complicated by generalized weakness and severe gait abnormality. c. Complicated by severe deconditioning. d. Requiring assistance with all her instrumental ADLs. e. Complicated by severe inched arthritis of the knees that are now bone on bone. f. Complicated by moderate with symptomatic arthritis of the left hip. 4. Hypertension. a. Well controlled as of 01/07/2019. 5. Diabetes, type 2. a. Controlled with hemoglobin A1c of 7.5. 6. Hypothyroidism. 7. Large incarcerated ventral hernia. a. Presently asymptomatic. 8. Panniculitis. a. Required hospitalization from 12/24/2018 to 12/29/2018. b. Resolving now on oral antibiotics as of 12/29/2018. c. Resolved with no signs of recurrence as of 01/07/2019. 9. Depression, well controlled. 10. Fibromyalgia. a. Controlled. 11. Hyperlipidemia. 12. Seborrheic dermatitis involving the ears. 13. Severe gait abnormality. a. Secondary to the massive obesity. b. Secondary to osteoarthritis of the knees. 14. Severe osteoarthritis of the knees that are bone on bone, right worse than the left. a. Some increased symptoms from her increased ambulation as of 01/06/2019. Improved as of 01/07/2019. 15. Moderate symptomatic arthritis of the left hip. a. Some increased symptoms in the left hip from an increased ambulation as of 01/06/2019. Improved as of 01/07/2019. 16. Gastroesophageal reflux disease. a. Mild increased symptoms on the Pepcid, previously controlled on Zantac and pantoprazole. b. Controlled on the pantoprazole as of 01/07/2019. PLAN: Continue PT. Continue present care. Job ID: [id number] [facility]US[facility]
[2019-01-07] MEDS: Acetaminophen 325 MG TAB PO PRN (13:21)
[2019-01-07] MEDS: traMADol HCl 50 MG TAB PO PRN (19:53)
[2019-01-07] MEDS: Lantus 1000 UNITS/10 ML VIAL SC SCH (21:06)
[2019-01-08] MEDS: Levothyroxine Sodium 100 MCG TAB PO SCH (05:48)
[2019-01-08] MEDS: Levothyroxine Sodium 75 MCG TAB PO SCH (05:48)
[2019-01-08] MEDS: Clindamycin 150 MG CAP PO SCH ×3 (05:48→20:52)
[2019-01-08] MEDS: Aspirin Chewable 81 MG TAB PO SCH (08:21)
[2019-01-08] MEDS: Hydrochlorothiazide 25 MG TAB PO SCH (08:21)
[2019-01-08] MEDS: Rosuvastatin 10 MG TAB PO SCH (08:21)
[2019-01-08] MEDS: Losartan 25 MG TAB PO SCH (08:22)
[2019-01-08] MEDS: glipiZIDE 5 MG TAB PO SCH ×2 (08:22→16:36)
[2019-01-08] MEDS: hydrALAZINE 10 MG TAB PO SCH ×2 (08:22→20:46)
[2019-01-08] MEDS: Potassium Chloride 10 MEQ TAB PO SCH ×2 (08:22→20:48)
[2019-01-08] MEDS: metFORMIN 500 MG TAB PO SCH ×2 (08:22→16:36)
[2019-01-08] MEDS: Venlafaxine HCl XR 150 MG CAP PO SCH (08:22)
[2019-01-08] MEDS: Amlodipine 5 MG TAB PO SCH (08:22)
[2019-01-08] MEDS: Ketoconazole 2% Cream 15 gm Tube TOP SCH ×2 (08:23→20:47)
[2019-01-08] MEDS: Glucosamine/D3/Boswellia Serra [Glucosamine Daily Complex Tab] PO SCH (08:23)
[2019-01-08] MEDS: Lantus 1000 UNITS/10 ML VIAL SC SCH (20:47)
[2019-01-09] MEDS: Levothyroxine Sodium 75 MCG TAB PO SCH (05:27)
[2019-01-09] MEDS: Levothyroxine Sodium 100 MCG TAB PO SCH (05:27)
[2019-01-09] MEDS: Glucosamine/D3/Boswellia Serra [Glucosamine Daily Complex Tab] PO SCH (08:08)
[2019-01-09] MEDS: Potassium Chloride 10 MEQ TAB PO SCH ×2 (08:09→21:01)
[2019-01-09] MEDS: metFORMIN 500 MG TAB PO SCH ×2 (08:09→16:40)
[2019-01-09] MEDS: Venlafaxine HCl XR 150 MG CAP PO SCH (08:09)
[2019-01-09] MEDS: Amlodipine 5 MG TAB PO SCH (08:09)
[2019-01-09] MEDS: hydrALAZINE 10 MG TAB PO SCH ×2 (08:09→20:59)
[2019-01-09] MEDS: glipiZIDE 5 MG TAB PO SCH ×2 (08:09→16:40)
[2019-01-09] MEDS: Aspirin Chewable 81 MG TAB PO SCH (08:09)
[2019-01-09] MEDS: Hydrochlorothiazide 25 MG TAB PO SCH (08:10)
[2019-01-09] MEDS: Losartan 25 MG TAB PO SCH (08:10)
[2019-01-09] MEDS: Rosuvastatin 10 MG TAB PO SCH (08:10)
[2019-01-09] MEDS: Ketoconazole 2% Cream 15 gm Tube TOP SCH ×2 (08:11→21:01)
[2019-01-09] MEDS ORDERED: Saccharomyces boulardii 250 MG CAP PO SCH (18:15)
[2019-01-09] MEDS: Lantus 1000 UNITS/10 ML VIAL SC SCH (21:00)
[2019-01-09] MEDS: Acetaminophen 325 MG TAB PO PRN (21:01)
[2019-01-10] MEDS: Levothyroxine Sodium 75 MCG TAB PO SCH (06:08)
[2019-01-10] MEDS: Levothyroxine Sodium 100 MCG TAB PO SCH (06:08)
[2019-01-10] MEDS: Glucosamine/D3/Boswellia Serra [Glucosamine Daily Complex Tab] PO SCH (08:29)
[2019-01-10] MEDS: Hydrochlorothiazide 25 MG TAB PO SCH (08:30)
[2019-01-10] MEDS: metFORMIN 500 MG TAB PO SCH ×2 (08:31→16:46)
[2019-01-10] MEDS: Losartan 25 MG TAB PO SCH (08:31)
[2019-01-10] MEDS: Rosuvastatin 10 MG TAB PO SCH (08:31)
[2019-01-10] MEDS: Aspirin Chewable 81 MG TAB PO SCH (08:31)
[2019-01-10] MEDS: Venlafaxine HCl XR 150 MG CAP PO SCH (08:32)
[2019-01-10] MEDS: hydrALAZINE 10 MG TAB PO SCH ×2 (08:32→22:00)
[2019-01-10] MEDS: Amlodipine 5 MG TAB PO SCH (08:33)
[2019-01-10] MEDS: Saccharomyces boulardii 250 MG CAP PO SCH (08:33)
[2019-01-10] MEDS: Potassium Chloride 10 MEQ TAB PO SCH ×2 (08:33→22:00)
[2019-01-10] MEDS: glipiZIDE 5 MG TAB PO SCH ×2 (08:33→16:46)
[2019-01-10] MEDS: Ketoconazole 2% Cream 15 gm Tube TOP SCH ×2 (08:34→22:01)
--- NOTE | 2019-01-10 09:36 | PRG ---
DATE OF SERVICE: 01/10/2019 SUBJECTIVE: The patient said she had a good night. She is feeling good this morning. She has no complaint. Her hips, knees are feeling good this morning. OBJECTIVE: GENERAL: The patient is lying in bed. She is alert, talkative, appears comfortable, in no distress. VITAL SIGNS: Her temp 97.6, pulse 82, respirations 129/61, O2 saturation 95% on room air. LUNGS: Clear. HEART: Regular rate. ABDOMEN: The patient has a chronic incarcerated ventral hernia that is nontender. No overlying redness. The pannus particularly of the dependent right side and inguinal area has no redness, no induration. EXTREMITIES: Lower extremities, no edema. LABORATORY DATA: Her FBS this morning is 137. ASSESSMENT: 1. Generalized weakness and deconditioning. a. The patient had weakness from her massive obesity and osteoarthritis of her knees prior to admission, but with the admission, she has had an increase in her deconditioning and decline in her functional capabilities. b. Requires assistance with her ADLs. c. Continued improvement as of 01/10/2019. 2. Hospitalized at [facility] from 12/24 to 12/29 for panniculitis, treated with 5 days of IV vancomycin and Zosyn and then switched to oral clindamycin. 3. Morbid obesity. a. Maximum weight of 440, now down to 360. b. Complicated by generalized weakness and severe gait abnormality. c. Complicated by severe deconditioning. d. Requiring assistance with all her instrumental ADLs. e. Complicated by severe inched arthritis of the knees that are now bone on bone. f. Complicated by moderate with symptomatic arthritis of the left hip. 4. Hypertension. a. Well controlled as of 01/10/2019. 5. Diabetes, type 2. a. Controlled with hemoglobin A1c of 7.5. 6. Hypothyroidism. 7. Large incarcerated ventral hernia. a. Presently asymptomatic. 8. Panniculitis. a. Required hospitalization from 12/24/2018 to 12/29/2018. b. Resolving now on oral antibiotics as of 12/29/2018. c. Resolved with no signs of recurrence as of 01/10/2019. 9. Depression, well controlled. 10. Fibromyalgia. a. Controlled. 11. Hyperlipidemia. 12. Seborrheic dermatitis involving the ears. 13. Severe gait abnormality. a. Secondary to the massive obesity. b. Secondary to osteoarthritis of the knees. c. Improved as of 01/10/2019. 14. Severe osteoarthritis of the knees that are bone on bone, right worse than the left. a. Presently comfortable as of 01/10/2019. 15. Moderate symptomatic arthritis of the left hip. a. Presently comfortable as of 01/10/2019. 16. Gastroesophageal reflux disease. a. Mild increased symptoms on the Pepcid, previously controlled on Zantac and pantoprazole. b. Controlled on the pantoprazole as of 01/10/2019. PLAN: Continue PT within her capabilities. Continue present medicines. Job ID: [id number] [facility]
--- NOTE | 2019-01-10 09:36 | PRG ---
DATE OF SERVICE: 01/08/2019 SUBJECTIVE: The patient says she feels a lot better today. She woke up without the pain in her knees and hips. Yesterday, she had rested more. Today, she has been able to ambulate to the bathroom and back with the use of a walker. She says she is not having any increased redness or swelling on the pannus. OBJECTIVE: GENERAL: The patient is sitting up in bed, is smiling, looks very comfortable and very happy. VITAL SIGNS: Show a temperature 97.6, pulse 75, respirations 18, O2 saturation 95%, blood pressure 114/60. LUNGS: Clear. HEART: Regular rate. EXTREMITIES: No edema. The patient is tolerating the sequential compression devices. Her Lovenox postop. LABORATORY DATA: Her FBS this morning was 144. ASSESSMENT: 1. Generalized weakness and deconditioning. a. The patient had weakness from her massive obesity and osteoarthritis of her knees prior to admission, but with the admission, she has had an increase in her deconditioning and decline in her functional capabilities. b. Requires assistance with her ADLs. c. Stable. After reducing the PT for couple of days, the pain in the left hip and the knees have resolved and she is ambulating now to the bathroom with her walker as of 01/08/2019. 2. Hospitalized at [facility] from 12/24 to 12/29 for panniculitis, treated with 5 days of IV vancomycin and Zosyn and then switched to oral clindamycin. 3. Morbid obesity. a. Maximum weight of 440, now down to 360. b. Complicated by generalized weakness and severe gait abnormality. c. Complicated by severe deconditioning. d. Requiring assistance with all her instrumental ADLs. e. Complicated by severe inched arthritis of the knees that are now bone on bone. f. Complicated by moderate with symptomatic arthritis of the left hip. 4. Hypertension. a. Well controlled as of 01/08/2019. 5. Diabetes, type 2. a. Controlled with hemoglobin A1c of 7.5. 6. Hypothyroidism. 7. Large incarcerated ventral hernia. a. Presently asymptomatic. 8. Panniculitis. a. Required hospitalization from 12/24/2018 to 12/29/2018. b. Resolving now on oral antibiotics as of 12/29/2018. c. Resolved with no signs of recurrence as of 01/07/2019. 9. Depression, well controlled. 10. Fibromyalgia. a. Controlled. 11. Hyperlipidemia. 12. Seborrheic dermatitis involving the ears. 13. Severe gait abnormality. a. Secondary to the massive obesity. b. Secondary to osteoarthritis of the knees. 14. Severe osteoarthritis of the knees that are bone on bone, right worse than the left. a. Stable, very comfortable today as of 01/08/2019, after reducing her PT. 15. Moderate symptomatic arthritis of the left hip. a. No pain today after reduction in some of the PT as of 01/08/2019. 16. Gastroesophageal reflux disease. a. Mild increased symptoms on the Pepcid, previously controlled on Zantac and pantoprazole. b. Controlled on the pantoprazole as of 01/07/2019. PLAN: Continue present care. Continue PT within her capabilities. Job ID: [id number] [facility]
[2019-01-10] MEDS: Acetaminophen 325 MG TAB PO PRN (12:57)
[2019-01-10] MEDS: Lantus 1000 UNITS/10 ML VIAL SC SCH (22:00)
[2019-01-11] MEDS: Acetaminophen 325 MG TAB PO PRN (01:30)
[2019-01-11] MEDS: Levothyroxine Sodium 75 MCG TAB PO SCH (05:33)
[2019-01-11] MEDS: Levothyroxine Sodium 100 MCG TAB PO SCH (05:33)
[2019-01-11] MEDS: glipiZIDE 5 MG TAB PO SCH ×2 (08:36→16:46)
[2019-01-11] MEDS: metFORMIN 500 MG TAB PO SCH ×2 (08:36→16:46)
[2019-01-11] MEDS: hydrALAZINE 10 MG TAB PO SCH ×2 (08:37→20:33)
[2019-01-11] MEDS: Amlodipine 5 MG TAB PO SCH (08:37)
[2019-01-11] MEDS: Aspirin Chewable 81 MG TAB PO SCH (08:37)
[2019-01-11] MEDS: Hydrochlorothiazide 25 MG TAB PO SCH (08:38)
[2019-01-11] MEDS: Ketoconazole 2% Cream 15 gm Tube TOP SCH ×2 (08:39→20:34)
[2019-01-11] MEDS: Losartan 25 MG TAB PO SCH (08:39)
[2019-01-11] MEDS: Glucosamine/D3/Boswellia Serra [Glucosamine Daily Complex Tab] PO SCH (08:41)
[2019-01-11] MEDS: Saccharomyces boulardii 250 MG CAP PO SCH (08:42)
[2019-01-11] MEDS: Rosuvastatin 10 MG TAB PO SCH (08:42)
[2019-01-11] MEDS: Potassium Chloride 10 MEQ TAB PO SCH ×2 (08:42→20:34)
[2019-01-11] MEDS: Venlafaxine HCl XR 150 MG CAP PO SCH (08:43)
[2019-01-11] MEDS: traMADol HCl 50 MG TAB PO PRN ×2 (08:44→20:36)
[2019-01-11] MEDS: Lantus 1000 UNITS/10 ML VIAL SC SCH (20:33)
[2019-01-12] MEDS: Levothyroxine Sodium 75 MCG TAB PO SCH (05:12)
[2019-01-12] MEDS: Levothyroxine Sodium 100 MCG TAB PO SCH (05:12)
[2019-01-12] MEDS: Amlodipine 5 MG TAB PO SCH (08:15)
[2019-01-12] MEDS: Saccharomyces boulardii 250 MG CAP PO SCH (08:15)
[2019-01-12] MEDS: Losartan 25 MG TAB PO SCH (08:15)
[2019-01-12] MEDS: hydrALAZINE 10 MG TAB PO SCH ×2 (08:15→20:32)
[2019-01-12] MEDS: Rosuvastatin 10 MG TAB PO SCH (08:15)
[2019-01-12] MEDS: Hydrochlorothiazide 25 MG TAB PO SCH (08:16)
[2019-01-12] MEDS: Venlafaxine HCl XR 150 MG CAP PO SCH (08:16)
[2019-01-12] MEDS: Aspirin Chewable 81 MG TAB PO SCH (08:16)
[2019-01-12] MEDS: glipiZIDE 5 MG TAB PO SCH ×2 (08:16→17:08)
[2019-01-12] MEDS: Potassium Chloride 10 MEQ TAB PO SCH ×2 (08:16→20:32)
[2019-01-12] MEDS: metFORMIN 500 MG TAB PO SCH ×2 (08:16→17:08)
[2019-01-12] MEDS: Ketoconazole 2% Cream 15 gm Tube TOP SCH ×2 (08:17→20:33)
[2019-01-12] MEDS: Glucosamine/D3/Boswellia Serra [Glucosamine Daily Complex Tab] PO SCH (08:17)
[2019-01-12] MEDS: Acetaminophen 325 MG TAB PO PRN (08:42)
[2019-01-12] MEDS: traMADol HCl 50 MG TAB PO PRN (08:42)
--- NOTE | 2019-01-12 10:38 | PRG ---
DATE OF SERVICE: 01/12/2019 SUBJECTIVE: The patient says she just did not feel good. She just aches and hurts in her knees and in her hip. She did not do much with therapy yesterday, but just cannot hardly get comfortable today. She is not running any fever. OBJECTIVE: GENERAL: The patient is sitting in bed. She has a grimace on her face. She is rubbing her knees and hip. She looks very uncomfortable. VITAL SIGNS: Show a temperature of 97.3, pulse 72, respirations 20, O2 saturation 96%, blood pressure was 88/45. LUNGS: Clear. HEART: Regular rate. EXTREMITIES: Have no edema. The knees have no effusion or redness. LABORATORY DATA: Her FBS this morning was 116. ASSESSMENT: 1. Generalized weakness and deconditioning. a. The patient had weakness from her massive obesity and osteoarthritis of her knees prior to admission, but with the admission, she has had an increase in her deconditioning and decline in her functional capabilities. b. Requires assistance with her ADLs. c. Gradual improvement. Limited by her severe arthritis in her knees and hip as of 01/12/2019. 2. Hospitalized at [facility] from 12/24 to 12/29 for panniculitis, treated with 5 days of IV vancomycin and Zosyn and then switched to oral clindamycin. 3. Morbid obesity. a. Maximum weight of 440, now down to 360. b. Complicated by generalized weakness and severe gait abnormality. c. Complicated by severe deconditioning. d. Requiring assistance with all her instrumental ADLs. e. Complicated by severe inched arthritis of the knees that are now bone on bone. f. Complicated by moderate with symptomatic arthritis of the left hip. 4. Hypertension. a. Well controlled as of 01/12/2019. 5. Diabetes, type 2. a. Controlled with hemoglobin A1c of 7.5. b. FBS 116 as of 04:16. 6. Hypothyroidism. 7. Large incarcerated ventral hernia. a. Presently asymptomatic. 8. Panniculitis. a. Required hospitalization from 12/24/2018 to 12/29/2018. b. Resolving now on oral antibiotics as of 12/29/2018. c. Resolved with no signs of recurrence as of 01/10/2019. 9. Depression, well controlled. 10. Fibromyalgia. a. Controlled. 11. Hyperlipidemia. 12. Seborrheic dermatitis involving the ears. 13. Severe gait abnormality. a. Secondary to the massive obesity. b. Secondary to osteoarthritis of the knees. c. Improved as of 01/10/2019. 14. Severe osteoarthritis of the knees that are bone on bone, right worse than the left. a. Marked increase in her joint pains and knees and also the hip. 15. Moderate symptomatic arthritis of the left hip. a. Increased pain in the left hip as of 01/12/2019. 16. Gastroesophageal reflux disease. a. Mild increased symptoms on the Pepcid, previously controlled on Zantac and pantoprazole. b. Controlled on the pantoprazole as of 01/10/2019. PLAN: The patient has been having increasing pain in her joints, particularly the knees and hip probably as a result of the increased activities in joints that are end stage and bone on bone, particularly in the knees and aggravated with her weight. The patient will back off the therapy some. Said that heat does not help. We will try the patient on a slow gradual tapering dose of prednisone. She realizes this may cause her sugar to go up some, but I think this will give us some help with her pain. Once she is better, any progression with therapy will have to be done very slowly and within her capability. She has the tramadol to fall back on for pain. Job ID: [id number] [facility]
[2019-01-12] MEDS: predniSONE 5 MG TAB PO SCH (10:50)
[2019-01-12] MEDS ORDERED: traMADol HCl 50 MG TAB PO PRN ×2 (13:28)
[2019-01-12] MEDS ORDERED: traMADol HCl 50 MG TAB PO SCH (13:30)
[2019-01-12] MEDS: Lantus 1000 UNITS/10 ML VIAL SC SCH (20:33)
[2019-01-13] MEDS ORDERED: traMADol HCl 50 MG TAB PO PRN (03:18)
[2019-01-13] MEDS: Levothyroxine Sodium 100 MCG TAB PO SCH (05:42)
[2019-01-13] MEDS: Levothyroxine Sodium 75 MCG TAB PO SCH (05:42)
[2019-01-13] MEDS ORDERED: predniSONE 5 MG TAB PO SCH (08:00)
[2019-01-13] MEDS: Rosuvastatin 10 MG TAB PO SCH ×2 (08:31→08:35)
[2019-01-13] MEDS: Hydrochlorothiazide 25 MG TAB PO SCH (08:32)
[2019-01-13] MEDS: Saccharomyces boulardii 250 MG CAP PO SCH (08:32)
[2019-01-13] MEDS: metFORMIN 500 MG TAB PO SCH ×2 (08:33→16:56)
[2019-01-13] MEDS: glipiZIDE 5 MG TAB PO SCH ×2 (08:33→16:56)
[2019-01-13] MEDS: Losartan 25 MG TAB PO SCH (08:33)
[2019-01-13] MEDS: predniSONE 5 MG TAB PO SCH (08:34)
[2019-01-13] MEDS: Potassium Chloride 10 MEQ TAB PO SCH ×2 (08:35→19:41)
[2019-01-13] MEDS: hydrALAZINE 10 MG TAB PO SCH ×2 (08:35→19:41)
[2019-01-13] MEDS: Venlafaxine HCl XR 150 MG CAP PO SCH (08:35)
[2019-01-13] MEDS: Aspirin Chewable 81 MG TAB PO SCH (08:35)
[2019-01-13] MEDS: Ketoconazole 2% Cream 15 gm Tube TOP SCH ×2 (08:36→19:41)
[2019-01-13] MEDS: Amlodipine 5 MG TAB PO SCH (08:36)
[2019-01-13] MEDS: Glucosamine/D3/Boswellia Serra [Glucosamine Daily Complex Tab] PO SCH (08:36)
[2019-01-13] MEDS: traMADol HCl 50 MG TAB PO PRN ×2 (08:45→21:41)
--- NOTE | 2019-01-13 11:10 | PRG ---
DATE OF SERVICE: 01/13/2019 SUBJECTIVE: The patient says she feels a lot better today. Yesterday afternoon she began hurting more. Her tramadol was increased to 50 mg one or two every 6 hours as needed, taking two, this gave her good relief. She said she rested well last night. This morning, felt good. She has been even able to work some with physical therapy. OBJECTIVE: GENERAL: The patient looks much better. She is in her bed. She is alert, talkative and smiling and looks very comfortable. VITAL SIGNS: Temperature 97.5, pulse 70, respirations are 20, O2 saturation 97% on room air, blood pressure 124/64. LUNGS: Clear. HEART: Regular rate. EXTREMITIES: No edema. ASSESSMENT: 1. Generalized weakness and deconditioning. a. The patient had weakness from her massive obesity and osteoarthritis of her knees prior to admission, but with the admission, she has had an increase in her deconditioning and decline in her functional capabilities. b. Requires assistance with her ADLs. c. Gradual improvement. Limited by her severe arthritis in her knees and hip as of 01/13/2019. 2. Hospitalized at [facility] from 12/24 to 12/29 for panniculitis, treated with 5 days of IV vancomycin and Zosyn and then switched to oral clindamycin. 3. Morbid obesity. a. Maximum weight of 440, now down to 360. b. Complicated by generalized weakness and severe gait abnormality. c. Complicated by severe deconditioning. d. Requiring assistance with all her instrumental ADLs. e. Complicated by severe inched arthritis of the knees that are now bone on bone. f. Complicated by moderate with symptomatic arthritis of the left hip. 4. Hypertension. a. Well controlled as of 01/13/2019. 5. Diabetes, type 2. a. Controlled with hemoglobin A1c of 7.5. b. FBS 116 as of 04:16. 6. Hypothyroidism. 7. Large incarcerated ventral hernia. a. Presently asymptomatic. 8. Panniculitis. a. Required hospitalization from 12/24/2018 to 12/29/2018. b. Resolving now on oral antibiotics as of 12/29/2018. c. Resolved with no signs of recurrence as of 01/10/2019. 9. Depression, well controlled. 10. Fibromyalgia. a. Controlled. 11. Hyperlipidemia. 12. Seborrheic dermatitis involving the ears. a. Controlled. 13. Severe gait abnormality. a. Secondary to the massive obesity. b. Secondary to osteoarthritis of the knees. c. Improved as of 01/10/2019. 14. Severe osteoarthritis of the knees that are bone on bone, right worse than the left. a. Symptomatically improved as of 01/13/2019. 15. Moderate symptomatic arthritis of the left hip. a. Symptomatically improved as of 01/13/2019. 16. Gastroesophageal reflux disease. a. Mild increased symptoms on the Pepcid, previously controlled on Zantac and pantoprazole. b. Controlled on the pantoprazole as of 01/10/2019. PLAN: Continue present care. Job ID: [id number] [facility]
[2019-01-13] MEDS: Lantus 1000 UNITS/10 ML VIAL SC SCH (19:44)
[2019-01-14] MEDS: Levothyroxine Sodium 100 MCG TAB PO SCH (05:37)
[2019-01-14] MEDS: Levothyroxine Sodium 75 MCG TAB PO SCH (05:37)
[2019-01-14] MEDS: glipiZIDE 5 MG TAB PO SCH ×2 (08:44→16:54)
[2019-01-14] MEDS: Amlodipine 5 MG TAB PO SCH (08:45)
[2019-01-14] MEDS: Losartan 25 MG TAB PO SCH (08:45)
[2019-01-14] MEDS: Saccharomyces boulardii 250 MG CAP PO SCH (08:45)
[2019-01-14] MEDS: metFORMIN 500 MG TAB PO SCH ×2 (08:45→16:55)
[2019-01-14] MEDS: Hydrochlorothiazide 25 MG TAB PO SCH (08:46)
[2019-01-14] MEDS: Venlafaxine HCl XR 150 MG CAP PO SCH (08:47)
[2019-01-14] MEDS: Aspirin Chewable 81 MG TAB PO SCH (08:48)
[2019-01-14] MEDS: predniSONE 5 MG TAB PO SCH (08:48)
[2019-01-14] MEDS: Potassium Chloride 10 MEQ TAB PO SCH ×2 (08:48→21:45)
[2019-01-14] MEDS: Glucosamine/D3/Boswellia Serra [Glucosamine Daily Complex Tab] PO SCH (08:48)
[2019-01-14] MEDS: hydrALAZINE 10 MG TAB PO SCH ×2 (08:48→21:45)
[2019-01-14] MEDS: Ketoconazole 2% Cream 15 gm Tube TOP SCH ×2 (08:49→21:48)
[2019-01-14] MEDS: traMADol HCl 50 MG TAB PO PRN ×2 (08:51→21:45)
--- NOTE | 2019-01-14 14:51 | PRG ---
DATE OF SERVICE: 01/14/2019 SUBJECTIVE: The patient says she is doing very well today. She feels a lot better. Her hip and knees are better. She is using the tramadol a little bit more often and using it x2 and this has really helped very well with her pain. She is working with [employer], Sania Sanders, to help decide whether to go back to her mobile home or an assisted living or [place] [facility]. OBJECTIVE: GENERAL: The patient is sitting up in bed. She is alert, looks very comfortable and in no distress. VITAL SIGNS: Her temperature is 96.5, pulse 84, blood pressure 128/54. Her O2 saturation 97% on room air. LUNGS: Clear. HEART: Regular rate. EXTREMITIES: No edema. LABORATORY DATA: Her FBS this morning was 110. ASSESSMENT: 1. Generalized weakness and deconditioning. a. The patient had weakness from her massive obesity and osteoarthritis of her knees prior to admission, but with the admission, she has had an increase in her deconditioning and decline in her functional capabilities. b. Requires assistance with her ADLs. c. Gradual improvement. Limited by her severe arthritis in her knees and hip as of 01/14/2019. 2. Hospitalized at [facility] from 12/24 to 12/29 for panniculitis, treated with 5 days of IV vancomycin and Zosyn and then switched to oral clindamycin. 3. Morbid obesity. a. Maximum weight of 440, now down to 360. b. Complicated by generalized weakness and severe gait abnormality. c. Complicated by severe deconditioning. d. Requiring assistance with all her instrumental ADLs. e. Complicated by severe inched arthritis of the knees that are now bone on bone. f. Complicated by moderate with symptomatic arthritis of the left hip. 4. Hypertension. a. Well controlled as of 01/14/2019. 5. Diabetes, type 2. a. Controlled with hemoglobin A1c of 7.5. b. FBS 116 as of 04:16. 6. Hypothyroidism. 7. Large incarcerated ventral hernia. a. Presently asymptomatic. 8. Panniculitis. a. Required hospitalization from 12/24/2018 to 12/29/2018. b. Resolving now on oral antibiotics as of 12/29/2018. c. Resolved with no signs of recurrence as of 01/14/2019. 9. Depression, well controlled. 10. Fibromyalgia. a. Controlled. 11. Hyperlipidemia. 12. Seborrheic dermatitis involving the ears. a. Controlled. 13. Severe gait abnormality. a. Secondary to the massive obesity. b. Secondary to osteoarthritis of the knees. c. Improved as of 01/14/2019. 14. Severe osteoarthritis of the knees that are bone on bone, right worse than the left. a. Symptomatically improved. Pain controlled as of 01/14/2019. 15. Moderate symptomatic arthritis of the left hip. a. Symptomatically improved. Pain well controlled as of 01/14/2019. 16. Gastroesophageal reflux disease. a. Mild increased symptoms on the Pepcid, previously controlled on Zantac and pantoprazole. b. Controlled on the pantoprazole as of 01/10/2019. PLAN: Continue present care. Continue PT. Job ID: [id number] [facility] CENTERHelen
[2019-01-14] MEDS: Lantus 1000 UNITS/10 ML VIAL SC SCH (21:50)
[2019-01-15] MEDS: Levothyroxine Sodium 100 MCG TAB PO SCH (06:12)
[2019-01-15] MEDS: Levothyroxine Sodium 75 MCG TAB PO SCH (06:12)
[2019-01-15] MEDS: Rosuvastatin 10 MG TAB PO SCH (08:47)
[2019-01-15] MEDS: predniSONE 5 MG TAB PO SCH (08:48)
[2019-01-15] MEDS: Saccharomyces boulardii 250 MG CAP PO SCH (08:48)
[2019-01-15] MEDS: Amlodipine 5 MG TAB PO SCH (08:48)
[2019-01-15] MEDS: metFORMIN 500 MG TAB PO SCH ×2 (08:51→17:16)
[2019-01-15] MEDS: Aspirin Chewable 81 MG TAB PO SCH (08:51)
[2019-01-15] MEDS: glipiZIDE 5 MG TAB PO SCH ×2 (08:51→17:16)
[2019-01-15] MEDS: Venlafaxine HCl XR 150 MG CAP PO SCH (08:51)
[2019-01-15] MEDS: Hydrochlorothiazide 25 MG TAB PO SCH (08:51)
[2019-01-15] MEDS: hydrALAZINE 10 MG TAB PO SCH ×2 (08:52→20:39)
[2019-01-15] MEDS: Losartan 25 MG TAB PO SCH (08:52)
[2019-01-15] MEDS: Potassium Chloride 10 MEQ TAB PO SCH ×2 (08:52→20:40)
[2019-01-15] MEDS: Ketoconazole 2% Cream 15 gm Tube TOP SCH ×2 (08:53→20:41)
[2019-01-15] MEDS: Glucosamine/D3/Boswellia Serra [Glucosamine Daily Complex Tab] PO SCH (08:53)
[2019-01-15] MEDS: traMADol HCl 50 MG TAB PO PRN ×2 (12:40→23:59)
[2019-01-15] MEDS: Lantus 1000 UNITS/10 ML VIAL SC SCH (20:40)
[2019-01-16] MEDS: Levothyroxine Sodium 100 MCG TAB PO SCH (05:23)
[2019-01-16] MEDS: Levothyroxine Sodium 75 MCG TAB PO SCH (05:23)
[2019-01-16] MEDS: Rosuvastatin 10 MG TAB PO SCH (08:41)
[2019-01-16] MEDS: Saccharomyces boulardii 250 MG CAP PO SCH (08:41)
[2019-01-16] MEDS: glipiZIDE 5 MG TAB PO SCH ×2 (08:41→17:20)
[2019-01-16] MEDS: predniSONE 5 MG TAB PO SCH (08:42)
[2019-01-16] MEDS: Potassium Chloride 10 MEQ TAB PO SCH ×2 (08:42→20:47)
[2019-01-16] MEDS: Venlafaxine HCl XR 150 MG CAP PO SCH (08:42)
[2019-01-16] MEDS: Hydrochlorothiazide 25 MG TAB PO SCH (08:42)
[2019-01-16] MEDS: metFORMIN 500 MG TAB PO SCH ×2 (08:42→17:20)
[2019-01-16] MEDS: Losartan 25 MG TAB PO SCH (08:43)
[2019-01-16] MEDS: Aspirin Chewable 81 MG TAB PO SCH (08:43)
[2019-01-16] MEDS: Amlodipine 5 MG TAB PO SCH (08:43)
[2019-01-16] MEDS: Ketoconazole 2% Cream 15 gm Tube TOP SCH ×2 (08:44→20:48)
[2019-01-16] MEDS: hydrALAZINE 10 MG TAB PO SCH ×2 (08:44→20:46)
[2019-01-16] MEDS: Glucosamine/D3/Boswellia Serra [Glucosamine Daily Complex Tab] PO SCH (08:45)
[2019-01-16] MEDS: traMADol HCl 50 MG TAB PO PRN ×2 (12:39→22:03)
[2019-01-16] MEDS: Lantus 1000 UNITS/10 ML VIAL SC SCH (20:47)
[2019-01-17] MEDS: Levothyroxine Sodium 75 MCG TAB PO SCH (05:31)
[2019-01-17] MEDS: Levothyroxine Sodium 100 MCG TAB PO SCH (05:31)
--- NOTE | 2019-01-17 07:22 | PRG ---
DATE OF SERVICE: 01/15/2019 SUBJECTIVE: The patient says she is feeling good this morning. Her knees and hip feel good. She has been working with physical therapy and walked yesterday up to 60 feet on four occasions with a rolling walker and standby assistance. She is transferring with standby assistance. Functionally, she is doing much better. OBJECTIVE: GENERAL: The patient is alert, appears very comfortable, in no distress, VITAL SIGNS: Temp 96.8, pulse 80, respirations 20, O2 saturation 98% on room air , blood pressure 163/72. Her weight is 349. LUNGS: Clear. HEART: Regular rate. EXTREMITIES: Trace edema in the ankles and feet. LABORATORY DATA: Her FBS this morning was 108, last evening at bedtime was 110. ASSESSMENT: 1. Generalized weakness and deconditioning. a. The patient had weakness from her massive obesity and osteoarthritis of her knees prior to admission, but with the admission, she has had an increase in her deconditioning and decline in her functional capabilities. b. Requires assistance with her ADLs. c. Walking up to 80 feet x4 in a day with a rolling walker and standby assistance, transferring independent with standby assistance as 01/15/2019. 2. Hospitalized at [facility] from 12/24 to 12/29 for panniculitis, treated with 5 days of IV vancomycin and Zosyn and then switched to oral clindamycin. 3. Morbid obesity. a. Maximum weight of 440, now down to 360. b. Complicated by generalized weakness and severe gait abnormality. c. Complicated by severe deconditioning. d. Requiring assistance with all her instrumental ADLs. e. Complicated by severe inched arthritis of the knees that are now bone on bone. f. Complicated by moderate with symptomatic arthritis of the left hip. 4. Hypertension. a. Well controlled as of 01/15/2019. 5. Diabetes, type 2. a. Controlled with hemoglobin A1c of 7.5. b. FBS 110 as of 01/15/2019. 6. Hypothyroidism. 7. Large incarcerated ventral hernia. a. Presently asymptomatic. 8. Panniculitis. a. Required hospitalization from 12/24/2018 to 12/29/2018. b. Resolving now on oral antibiotics as of 12/29/2018. c. Resolved with no signs of recurrence as of 01/15/2019. 9. Depression, well controlled. 10. Fibromyalgia. a. Controlled. 11. Hyperlipidemia. 12. Seborrheic dermatitis involving the ears. a. Controlled. 13. Severe gait abnormality. a. Secondary to the massive obesity. b. Secondary to osteoarthritis of the knees. c. Improved as of 01/14/2019. 14. Severe osteoarthritis of the knees that are bone on bone, right worse than the left. a. Symptomatically improved. Pain controlled as of 01/14/2019. 15. Moderate symptomatic arthritis of the left hip. a. Symptomatically improved. Pain well controlled as of 01/15/2019. 16. Gastroesophageal reflux disease. a. Mild increased symptoms on the Pepcid, previously controlled on Zantac and pantoprazole. b. Controlled on the pantoprazole as of 01/10/2019. PLAN: Continue present care. Continue PT/OT. Sania Sanders, the Social Service has worked with her and they are looking toward probable senior living placement after her discharge. Job ID: [id number] [facility]
[2019-01-17] MEDS: Aspirin Chewable 81 MG TAB PO SCH (08:29)
[2019-01-17] MEDS: Polyethylene Glycol 3350 17 GM Packet PO SCH (08:29)
[2019-01-17] MEDS: Hydrochlorothiazide 25 MG TAB PO SCH (08:29)
[2019-01-17] MEDS: Losartan 25 MG TAB PO SCH (08:30)
[2019-01-17] MEDS: Saccharomyces boulardii 250 MG CAP PO SCH (08:30)
[2019-01-17] MEDS: metFORMIN 500 MG TAB PO SCH ×2 (08:31→17:18)
[2019-01-17] MEDS: Rosuvastatin 10 MG TAB PO SCH (08:31)
[2019-01-17] MEDS: Venlafaxine HCl XR 150 MG CAP PO SCH (08:31)
[2019-01-17] MEDS: predniSONE 5 MG TAB PO SCH (08:31)
[2019-01-17] MEDS: Amlodipine 5 MG TAB PO SCH (08:32)
[2019-01-17] MEDS: glipiZIDE 5 MG TAB PO SCH ×2 (08:32→17:18)
[2019-01-17] MEDS: Potassium Chloride 10 MEQ TAB PO SCH ×2 (08:32→20:38)
[2019-01-17] MEDS: hydrALAZINE 10 MG TAB PO SCH ×2 (08:33→20:37)
[2019-01-17] MEDS: Glucosamine/D3/Boswellia Serra [Glucosamine Daily Complex Tab] PO SCH (08:33)
[2019-01-17] MEDS: Ketoconazole 2% Cream 15 gm Tube TOP SCH ×2 (08:33→20:38)
--- NOTE | 2019-01-17 10:06 | PRG ---
DATE OF SERVICE: 01/17/2019 SUBJECTIVE: The patient said she had a little more soreness in her hips yesterday and this morning, but right now they are feeling better. She has been having a little bit more trouble with constipation. She said she has not had any trouble with any increased redness or irritation or pain on her abdominal pannus. OBJECTIVE: GENERAL: The patient is alert, appears comfortable, and in no distress. VITAL SIGNS: Her temp is 97.4, pulse 86, blood pressure 139/65, respirations 20 , and O2 saturation 96% on room air. LUNGS: Clear. HEART: Regular rate. EXTREMITIES: No edema. ABDOMEN: The abdominal pannus has no redness or induration. SKIN: There is no rash in the skin folds. LABORATORY DATA: FBS yesterday morning was 109. ASSESSMENT: 1. Generalized weakness and deconditioning. a. The patient had weakness from her massive obesity and osteoarthritis of her knees prior to admission, but with the admission, she has had an increase in her deconditioning and decline in her functional capabilities. b. Requires assistance with her ADLs. c. Gradual improvement. Limited by her severe arthritis in her knees and hip as of 01/17/2019. 2. Hospitalized at [facility] from 12/24 to 12/29 for panniculitis, treated with 5 days of IV vancomycin and Zosyn and then switched to oral clindamycin. 3. Morbid obesity. a. Maximum weight of 440, now down to 360. b. Complicated by generalized weakness and severe gait abnormality. c. Complicated by severe deconditioning. d. Requiring assistance with all her instrumental ADLs. e. Complicated by severe inched arthritis of the knees that are now bone on bone. f. Complicated by moderate with symptomatic arthritis of the left hip. 4. Hypertension. a. Well controlled as of 01/17/2019. 5. Diabetes, type 2. a. Controlled with hemoglobin A1c of 7.5. b. FBS 116 as of 04:16. 6. Hypothyroidism. 7. Large incarcerated ventral hernia. a. Presently asymptomatic. 8. Panniculitis. a. Required hospitalization from 12/24/2018 to 12/29/2018. b. Resolving now on oral antibiotics as of 12/29/2018. c. Resolved with no signs of recurrence as of 01/17/2019. 9. Depression, well controlled. 10. Fibromyalgia. a. Controlled. 11. Hyperlipidemia. 12. Seborrheic dermatitis involving the ears. a. Controlled. 13. Severe gait abnormality. a. Secondary to the massive obesity. b. Secondary to osteoarthritis of the knees. c. Overall pain is less, but still has times where she requires her pain medication as of 01/17/2019. 14. Severe osteoarthritis of the knees that are bone on bone, right worse than the left. a. Symptomatically improved. Pain controlled as of 01/17/2019. 15. Moderate symptomatic arthritis of the left hip. a. Symptomatically improved. Pain well controlled as of 01/17/2019. 16. Gastroesophageal reflux disease. a. Mild increased symptoms on the Pepcid, previously controlled on Zantac and pantoprazole. b. Controlled on the pantoprazole as of 01/10/2019. PLAN: Continue present care. I spoke with Social Service, Sania Sanders, who will ensure that the lady from [facility] gets a visit with Kate Ann today about post hospital care. Job ID: [id number] [facility]ITALHelen
[2019-01-17] MEDS: traMADol HCl 50 MG TAB PO PRN ×2 (11:26→20:36)
[2019-01-17] MEDS: Lantus 1000 UNITS/10 ML VIAL SC SCH (20:38)
[2019-01-18] MEDS: Levothyroxine Sodium 75 MCG TAB PO SCH (05:14)
[2019-01-18] MEDS: Levothyroxine Sodium 100 MCG TAB PO SCH (05:14)
[2019-01-18] MEDS: metFORMIN 500 MG TAB PO SCH ×2 (08:22→17:12)
[2019-01-18] MEDS: glipiZIDE 5 MG TAB PO SCH ×2 (08:23→17:12)
[2019-01-18] MEDS: Hydrochlorothiazide 25 MG TAB PO SCH (08:23)
[2019-01-18] MEDS: hydrALAZINE 10 MG TAB PO SCH ×2 (08:23→21:07)
[2019-01-18] MEDS: Losartan 25 MG TAB PO SCH (08:24)
[2019-01-18] MEDS: predniSONE 5 MG TAB PO SCH (08:24)
[2019-01-18] MEDS: Venlafaxine HCl XR 150 MG CAP PO SCH (08:24)
[2019-01-18] MEDS: Potassium Chloride 10 MEQ TAB PO SCH ×2 (08:24→21:07)
[2019-01-18] MEDS: Aspirin Chewable 81 MG TAB PO SCH (08:24)
[2019-01-18] MEDS: Amlodipine 5 MG TAB PO SCH (08:25)
[2019-01-18] MEDS: Ketoconazole 2% Cream 15 gm Tube TOP SCH ×2 (08:25→21:10)
[2019-01-18] MEDS: Glucosamine/D3/Boswellia Serra [Glucosamine Daily Complex Tab] PO SCH (08:26)
[2019-01-18] MEDS: Polyethylene Glycol 3350 17 GM Packet PO SCH (08:26)
[2019-01-18] MEDS: Saccharomyces boulardii 250 MG CAP PO SCH (08:27)
[2019-01-18] MEDS: Rosuvastatin 10 MG TAB PO SCH (08:27)
[2019-01-18] MEDS: traMADol HCl 50 MG TAB PO PRN ×2 (09:38→21:06)
[2019-01-18] MEDS: Lantus 1000 UNITS/10 ML VIAL SC SCH (21:10)
[2019-01-19] MEDS: Levothyroxine Sodium 75 MCG TAB PO SCH (05:41)
[2019-01-19] MEDS: Levothyroxine Sodium 100 MCG TAB PO SCH (05:42)
[2019-01-19] MEDS: Glucosamine/D3/Boswellia Serra [Glucosamine Daily Complex Tab] PO SCH (08:38)
[2019-01-19] MEDS: Polyethylene Glycol 3350 17 GM Packet PO SCH (08:39)
[2019-01-19] MEDS: Rosuvastatin 10 MG TAB PO SCH (08:39)
[2019-01-19] MEDS: Hydrochlorothiazide 25 MG TAB PO SCH (08:40)
[2019-01-19] MEDS: predniSONE 5 MG TAB PO SCH (08:40)
[2019-01-19] MEDS: Aspirin Chewable 81 MG TAB PO SCH (08:40)
[2019-01-19] MEDS: glipiZIDE 5 MG TAB PO SCH ×2 (08:40→17:03)
[2019-01-19] MEDS: Potassium Chloride 10 MEQ TAB PO SCH ×2 (08:41→20:17)
[2019-01-19] MEDS: Amlodipine 5 MG TAB PO SCH (08:41)
[2019-01-19] MEDS: Ketoconazole 2% Cream 15 gm Tube TOP SCH ×2 (08:41→20:23)
[2019-01-19] MEDS: hydrALAZINE 10 MG TAB PO SCH ×2 (08:41→20:17)
[2019-01-19] MEDS: Saccharomyces boulardii 250 MG CAP PO SCH (08:41)
[2019-01-19] MEDS: Venlafaxine HCl XR 150 MG CAP PO SCH (08:41)
[2019-01-19] MEDS: metFORMIN 500 MG TAB PO SCH ×2 (08:41→17:03)
[2019-01-19] MEDS: Losartan 25 MG TAB PO SCH (08:41)
[2019-01-19] MEDS: traMADol HCl 50 MG TAB PO PRN ×2 (11:03→23:43)
[2019-01-19 12:42] VITALS: BMI 57.3
[2019-01-19] MEDS: Lantus 1000 UNITS/10 ML VIAL SC SCH (20:18)
[2019-01-20] MEDS: Levothyroxine Sodium 100 MCG TAB PO SCH (05:41)
[2019-01-20] MEDS: Levothyroxine Sodium 75 MCG TAB PO SCH (05:41)
[2019-01-20] MEDS: glipiZIDE 5 MG TAB PO SCH ×2 (07:49→16:44)
[2019-01-20] MEDS: metFORMIN 500 MG TAB PO SCH ×2 (07:50→16:43)
[2019-01-20] MEDS: predniSONE 5 MG TAB PO SCH (07:51)
--- NOTE | 2019-01-20 08:12 | PRG ---
DATE OF SERVICE: 01/19/2019 SUBJECTIVE: The patient says she is doing better. She is feeling better. She did speak with the [facility] and is seriously thinking about making a move there. They are checking on her eligibility and if she is eligible once pursue this. OBJECTIVE: GENERAL: The patient is alert, appears in good spirits, in no distress. VITAL SIGNS: His temperature 97.4, pulse 88, respirations 20, O2 saturation 94% on room air, blood pressure 141/58. LUNGS: Clear. HEART: Regular rate. EXTREMITIES: No edema. LABORATORY DATA: Her FBS was 100. ASSESSMENT: 1. Generalized weakness and deconditioning. a. The patient had weakness from her massive obesity and osteoarthritis of her knees prior to admission, but with the admission, she has had an increase in her deconditioning and decline in her functional capabilities. b. Requires assistance with her ADLs. c. Gradual improvement. Limited by her severe arthritis in her knees and hip as of 01/19/2019. 2. Hospitalized at [facility] from 12/24 to 12/29 for panniculitis, treated with 5 days of IV vancomycin and Zosyn and then switched to oral clindamycin. 3. Morbid obesity. a. Maximum weight of 440, now down to 360. b. Complicated by generalized weakness and severe gait abnormality. c. Complicated by severe deconditioning. d. Requiring assistance with all her instrumental ADLs. e. Complicated by severe inched arthritis of the knees that are now bone on bone. f. Complicated by moderate with symptomatic arthritis of the left hip. 4. Hypertension. a. Well controlled as of 01/19/2019. 5. Diabetes, type 2. a. Controlled with hemoglobin A1c of 7.5. b. FBS 116 as of 04:16. 6. Hypothyroidism. 7. Large incarcerated ventral hernia. a. Presently asymptomatic. 8. Panniculitis. a. Required hospitalization from 12/24/2018 to 12/29/2018. b. Resolving now on oral antibiotics as of 12/29/2018. c. Resolved with no signs of recurrence as of 01/19/2019. 9. Depression, well controlled. 10. Fibromyalgia. a. Controlled. 11. Hyperlipidemia. 12. Seborrheic dermatitis involving the ears. a. Controlled. 13. Severe gait abnormality. a. Secondary to the massive obesity. b. Secondary to osteoarthritis of the knees. c. Improved as of 01/19/2019. 1. Pain better controlled as of 01/19/2019. 14. Severe osteoarthritis of the knees that are bone on bone, right worse than the left. a. Symptomatically improved. Pain controlled as of 01/17/2019. 15. Moderate symptomatic arthritis of the left hip. a. Symptomatically improved. Pain well controlled as of 01/17/2019. 16. Gastroesophageal reflux disease. a. Mild increased symptoms on the Pepcid, previously controlled on Zantac and pantoprazole. b. Controlled on the pantoprazole as of 01/10/2019. PLAN: Continue present care. The patient thinks that if she is eligible to enter the [facility], she wants to pursue this. She does not think this will be a problem. She has Medicare and Medicaid insurance. Job ID: [id number] MTDD
[2019-01-20] MEDS: Rosuvastatin 10 MG TAB PO SCH (08:19)
[2019-01-20] MEDS: Glucosamine/D3/Boswellia Serra [Glucosamine Daily Complex Tab] PO SCH (08:20)
[2019-01-20] MEDS: Polyethylene Glycol 3350 17 GM Packet PO SCH (08:21)
[2019-01-20] MEDS: Potassium Chloride 10 MEQ TAB PO SCH ×2 (08:22→21:24)
[2019-01-20] MEDS: Venlafaxine HCl XR 150 MG CAP PO SCH (08:24)
[2019-01-20] MEDS: Saccharomyces boulardii 250 MG CAP PO SCH (08:29)
[2019-01-20] MEDS: Acetaminophen 325 MG TAB PO PRN (08:30)
[2019-01-20] MEDS: Hydrochlorothiazide 25 MG TAB PO SCH (08:48)
[2019-01-20] MEDS: Aspirin Chewable 81 MG TAB PO SCH (08:50)
[2019-01-20] MEDS: Amlodipine 5 MG TAB PO SCH (08:50)
[2019-01-20] MEDS: hydrALAZINE 10 MG TAB PO SCH ×2 (08:51→21:25)
[2019-01-20] MEDS: Ketoconazole 2% Cream 15 gm Tube TOP SCH ×2 (08:51→21:25)
[2019-01-20] MEDS: Losartan 25 MG TAB PO SCH (08:52)
--- NOTE | 2019-01-20 10:06 | PRG ---
DATE OF SERVICE: 01/20/2019 SUBJECTIVE: The patient said she is feeling good this morning. She said her legs are feeling better. She is doing better with her therapy. She has talked with volunteer patient representative from [facility], and arrangements are being made with probable discharge to the facility on Thursday, 01/24. OBJECTIVE: GENERAL: The patient is alert, appears very comfortable, in no distress. VITAL SIGNS: Her temp is 96.9, pulse 68, respirations 20, O2 saturation 99% on room air, blood pressure 147/65. LUNGS: Clear. HEART: Regular rate. EXTREMITIES: No edema. LABORATORY DATA: Her FBS this morning 105. ASSESSMENT: 1. Generalized weakness and deconditioning. a. The patient had weakness from her massive obesity and osteoarthritis of her knees prior to admission, but with the admission, she has had an increase in her deconditioning and decline in her functional capabilities. b. Requires assistance with her ADLs. c. Gradual improvement. Limited by her severe arthritis in her knees and hip as of 01/20/2019. 2. Hospitalized at [facility] from 12/24 to 12/29 for panniculitis, treated with 5 days of IV vancomycin and Zosyn and then switched to oral clindamycin. 3. Morbid obesity. a. Maximum weight of 440, now down to 360. b. Complicated by generalized weakness and severe gait abnormality. c. Complicated by severe deconditioning. d. Requiring assistance with all her instrumental ADLs. e. Complicated by severe inched arthritis of the knees that are now bone on bone. f. Complicated by moderate with symptomatic arthritis of the left hip. 4. Hypertension. a. Well controlled as of 01/20/2019. 5. Diabetes, type 2. a. Controlled with hemoglobin A1c of 7.5. b. FBS 116 as of 04:16. 6. Hypothyroidism. 7. Large incarcerated ventral hernia. a. Presently asymptomatic. 8. Panniculitis. a. Required hospitalization from 12/24/2018 to 12/29/2018. b. Resolving now on oral antibiotics as of 12/29/2018. c. Resolved with no signs of recurrence as of 01/20/2019. 9. Depression, well controlled. 10. Fibromyalgia. a. Controlled. 11. Hyperlipidemia. 12. Seborrheic dermatitis involving the ears. a. Controlled. 13. Severe gait abnormality. a. Secondary to the massive obesity. b. Secondary to osteoarthritis of the knees. c. Improved as of 01/20/2019. 14. Severe osteoarthritis of the knees that are bone on bone, right worse than the left. a. Symptomatically improved. Pain controlled as of 01/20/2019. 15. Moderate symptomatic arthritis of the left hip. a. Symptomatically improved. Pain well controlled as of 01/20/2019. 16. Gastroesophageal reflux disease. a. Mild increased symptoms on the Pepcid, previously controlled on Zantac and pantoprazole. b. Controlled on the pantoprazole as of 01/10/2019. PLAN: Continue present care. Continue PT and OT. Tentatively, we will transfer the patient to [facility] on Thursday, 01/24. Job ID: [id number] [facility]
[2019-01-20] MEDS: Lantus 1000 UNITS/10 ML VIAL SC SCH (21:25)
[2019-01-21] MEDS: Levothyroxine Sodium 100 MCG TAB PO SCH (06:04)
[2019-01-21] MEDS: Levothyroxine Sodium 75 MCG TAB PO SCH (06:04)
[2019-01-21] MEDS: glipiZIDE 5 MG TAB PO SCH ×2 (07:44→16:03)
[2019-01-21] MEDS: predniSONE 5 MG TAB PO SCH (07:44)
[2019-01-21] MEDS: metFORMIN 500 MG TAB PO SCH ×2 (07:45→16:03)
[2019-01-21] MEDS: hydrALAZINE 10 MG TAB PO SCH ×2 (08:03→20:28)
[2019-01-21] MEDS: Aspirin Chewable 81 MG TAB PO SCH (08:03)
[2019-01-21] MEDS: Amlodipine 5 MG TAB PO SCH (08:03)
[2019-01-21] MEDS: Saccharomyces boulardii 250 MG CAP PO SCH (08:04)
[2019-01-21] MEDS: Venlafaxine HCl XR 150 MG CAP PO SCH (08:04)
[2019-01-21] MEDS: Hydrochlorothiazide 25 MG TAB PO SCH (08:04)
[2019-01-21] MEDS: Polyethylene Glycol 3350 17 GM Packet PO SCH (08:05)
[2019-01-21] MEDS: Losartan 25 MG TAB PO SCH (08:05)
[2019-01-21] MEDS: Potassium Chloride 10 MEQ TAB PO SCH ×2 (08:05→20:28)
[2019-01-21] MEDS: Ketoconazole 2% Cream 15 gm Tube TOP SCH ×2 (08:05→20:29)
[2019-01-21] MEDS: Glucosamine/D3/Boswellia Serra [Glucosamine Daily Complex Tab] PO SCH (08:06)
[2019-01-21] MEDS: Rosuvastatin 10 MG TAB PO SCH (08:06)
--- NOTE | 2019-01-21 12:24 | PRG ---
DATE OF SERVICE: 01/21/2019 SUBJECTIVE: The patient says she is doing very well. Her hip and knees feel good. She has not had to use any of her pain medicine. Her prednisone has been gradually tapered from 20 mg a day for 5 days down to her present dose of 10 mg a day. She says she is feeling a lot better. Arrangements have been made for her to enter the long-term at [facility] on Thursday, 01/24. She is excited about this move. OBJECTIVE: GENERAL: The patient is sitting up in bed, smiling, talkative, appears very comfortable, in no distress. VITAL SIGNS: Her temp is 98.1, her pulse is 76, blood pressure is 145/74, respiratory rate is 20, and O2 saturation is 95% on room air. LUNGS: Clear. HEART: Regular rate. EXTREMITIES: No edema. ASSESSMENT: 1. Generalized weakness and deconditioning. a. The patient had weakness from her massive obesity and osteoarthritis of her knees prior to admission, but with the admission, she has had an increase in her deconditioning and decline in her functional capabilities. b. Requires assistance with her ADLs. c. Continued improvement as of 01/21/2019. 2. Hospitalized at [facility] from 12/24 to 12/29 for panniculitis, treated with 5 days of IV vancomycin and Zosyn and then switched to oral clindamycin. 3. Morbid obesity. a. Maximum weight of 440, now down to 360. b. Complicated by generalized weakness and severe gait abnormality. c. Complicated by severe deconditioning. d. Requiring assistance with all her instrumental ADLs. e. Complicated by severe inched arthritis of the knees that are now bone on bone. f. Complicated by moderate with symptomatic arthritis of the left hip. 4. Hypertension. a. Well controlled as of 01/21/2019. 5. Diabetes, type 2. a. Controlled with hemoglobin A1c of 7.5. b. FBS 116 as of 04:16. 6. Hypothyroidism. 7. Large incarcerated ventral hernia. a. Presently asymptomatic. 8. Panniculitis. a. Required hospitalization from 12/24/2018 to 12/29/2018. b. Resolving now on oral antibiotics as of 12/29/2018. c. Resolved with no signs of recurrence as of 01/21/2019. 9. Depression, well controlled. 10. Fibromyalgia. a. Controlled. 11. Hyperlipidemia. 12. Seborrheic dermatitis involving the ears. a. Controlled. 13. Severe gait abnormality. a. Secondary to the massive obesity. b. Secondary to osteoarthritis of the knees. c. Improved as of 01/21/2019. 14. Severe osteoarthritis of the knees that are bone on bone, right worse than the left. a. Presently very comfortable with no pain as of 01/21/2019. 15. Moderate symptomatic arthritis of the left hip. a. Presently very comfortable with no pain and not requiring pain medication as of 01/21/2019. 16. Gastroesophageal reflux disease. a. Mild increased symptoms on the Pepcid, previously controlled on Zantac and pantoprazole. b. Controlled on the pantoprazole as of 01/10/2019. PLAN: Continue present care. Continue PT/OT. Continue the slow taper of the prednisone. Anticipate discharge to [facility] on Thursday, 01/24. Job ID: [id number] MTDD
[2019-01-21] MEDS: Lantus 1000 UNITS/10 ML VIAL SC SCH (20:27)
[2019-01-21] MEDS: Acetaminophen 325 MG TAB PO PRN (23:24)
[2019-01-22] MEDS: Levothyroxine Sodium 75 MCG TAB PO SCH (05:19)
[2019-01-22] MEDS: Levothyroxine Sodium 100 MCG TAB PO SCH (05:19)
[2019-01-22] MEDS: Hydrochlorothiazide 25 MG TAB PO SCH (08:24)
[2019-01-22] MEDS: Rosuvastatin 10 MG TAB PO SCH (08:24)
[2019-01-22] MEDS: Amlodipine 5 MG TAB PO SCH (08:25)
[2019-01-22] MEDS: hydrALAZINE 10 MG TAB PO SCH ×2 (08:25→20:31)
[2019-01-22] MEDS: Aspirin Chewable 81 MG TAB PO SCH (08:25)
[2019-01-22] MEDS: metFORMIN 500 MG TAB PO SCH ×2 (08:25→16:51)
[2019-01-22] MEDS: Losartan 25 MG TAB PO SCH (08:25)
[2019-01-22] MEDS: Venlafaxine HCl XR 150 MG CAP PO SCH (08:26)
[2019-01-22] MEDS: glipiZIDE 5 MG TAB PO SCH ×2 (08:26→16:51)
[2019-01-22] MEDS: Potassium Chloride 10 MEQ TAB PO SCH ×2 (08:26→20:31)
[2019-01-22] MEDS: Saccharomyces boulardii 250 MG CAP PO SCH (08:26)
[2019-01-22] MEDS: predniSONE 5 MG TAB PO SCH (08:26)
[2019-01-22] MEDS: Glucosamine/D3/Boswellia Serra [Glucosamine Daily Complex Tab] PO SCH (08:26)
[2019-01-22] MEDS: Ketoconazole 2% Cream 15 gm Tube TOP SCH ×2 (08:27→20:33)
[2019-01-22] MEDS: Polyethylene Glycol 3350 17 GM Packet PO SCH (08:27)
[2019-01-22] MEDS: traMADol HCl 50 MG TAB PO PRN ×2 (14:33→22:46)
[2019-01-22] MEDS: Lantus 1000 UNITS/10 ML VIAL SC SCH (20:30)
[2019-01-23] MEDS: Levothyroxine Sodium 75 MCG TAB PO SCH (05:25)
[2019-01-23] MEDS: Levothyroxine Sodium 100 MCG TAB PO SCH (05:25)
[2019-01-23] MEDS: glipiZIDE 5 MG TAB PO SCH ×2 (07:43→16:56)
[2019-01-23] MEDS: Rosuvastatin 10 MG TAB PO SCH (07:43)
[2019-01-23] MEDS: Hydrochlorothiazide 25 MG TAB PO SCH (07:43)
[2019-01-23] MEDS: Aspirin Chewable 81 MG TAB PO SCH (07:43)
[2019-01-23] MEDS: Saccharomyces boulardii 250 MG CAP PO SCH (07:43)
[2019-01-23] MEDS: hydrALAZINE 10 MG TAB PO SCH ×2 (07:44→21:17)
[2019-01-23] MEDS: predniSONE 5 MG TAB PO SCH (07:44)
[2019-01-23] MEDS: Amlodipine 5 MG TAB PO SCH (07:44)
[2019-01-23] MEDS: Losartan 25 MG TAB PO SCH (07:44)
[2019-01-23] MEDS: Glucosamine/D3/Boswellia Serra [Glucosamine Daily Complex Tab] PO SCH (07:45)
[2019-01-23] MEDS: Polyethylene Glycol 3350 17 GM Packet PO SCH (07:45)
[2019-01-23] MEDS: metFORMIN 500 MG TAB PO SCH ×2 (07:45→16:56)
[2019-01-23] MEDS: Potassium Chloride 10 MEQ TAB PO SCH ×2 (07:45→21:19)
[2019-01-23] MEDS: Venlafaxine HCl XR 150 MG CAP PO SCH (07:45)
[2019-01-23] MEDS: Ketoconazole 2% Cream 15 gm Tube TOP SCH ×2 (07:46→21:19)
[2019-01-23] MEDS: Acetaminophen 325 MG TAB PO PRN (13:15)
[2019-01-23] MEDS: Lantus 1000 UNITS/10 ML VIAL SC SCH (21:18)
[2019-01-24] MEDS: Levothyroxine Sodium 100 MCG TAB PO SCH (05:14)
[2019-01-24] MEDS: Acetaminophen 325 MG TAB PO PRN (05:14)
[2019-01-24] MEDS: Levothyroxine Sodium 75 MCG TAB PO SCH (05:14)
[2019-01-24] MEDS: predniSONE 5 MG TAB PO SCH (07:33)
[2019-01-24] MEDS: glipiZIDE 5 MG TAB PO SCH (07:34)
[2019-01-24] MEDS: metFORMIN 500 MG TAB PO SCH (07:34)
[2019-01-24 07:55] VITALS: TEMP 96.7
[2019-01-24] MEDS: traMADol HCl 50 MG TAB PO PRN (08:34)
[2019-01-24] MEDS: Losartan 25 MG TAB PO SCH (08:38)
[2019-01-24] MEDS: hydrALAZINE 10 MG TAB PO SCH (08:39)
[2019-01-24] MEDS: Venlafaxine HCl XR 150 MG CAP PO SCH (08:40)
[2019-01-24] MEDS: Potassium Chloride 10 MEQ TAB PO SCH (08:40)
[2019-01-24] MEDS: Hydrochlorothiazide 25 MG TAB PO SCH (08:40)
[2019-01-24] MEDS: Saccharomyces boulardii 250 MG CAP PO SCH (08:40)
[2019-01-24] MEDS: Aspirin Chewable 81 MG TAB PO SCH (08:40)
[2019-01-24] MEDS: Amlodipine 5 MG TAB PO SCH (08:41)
[2019-01-24] MEDS: Ketoconazole 2% Cream 15 gm Tube TOP SCH (08:42)
[2019-01-24] MEDS: Glucosamine/D3/Boswellia Serra [Glucosamine Daily Complex Tab] PO SCH (08:43)
[2019-01-24] MEDS: Polyethylene Glycol 3350 17 GM Packet PO SCH (08:44)
[2019-01-24] MEDS: Rosuvastatin 10 MG TAB PO SCH (08:44)
[2019-01-24 08:48] VITALS: BP 145/65
--- NOTE | 2019-01-25 07:17 | DIS ---
DATE OF ADMISSION: 12/29/2018 DATE OF DISCHARGE: 01/24/2019 FINAL DIAGNOSES: 1. Generalized weakness and deconditioning. a. The patient had weakness from her massive obesity and osteoarthritis of her knees prior to admission, but with the admission, she has had an increase in her deconditioning and decline in her functional capabilities. b. Requires assistance with her ADLs. c. Continued improvement as of 01/24/2019. 2. Hospitalized at [facility] from 12/24 to 12/29 for panniculitis, treated with 5 days of IV vancomycin and Zosyn and then switched to oral clindamycin. 3. Morbid obesity. a. Maximum weight of 440, now down to 360. b. Complicated by generalized weakness and severe gait abnormality. c. Complicated by severe deconditioning. d. Requiring assistance with all her instrumental ADLs. e. Complicated by severe inched arthritis of the knees that are now bone on bone. f. Complicated by moderate with symptomatic arthritis of the left hip. 4. Hypertension. a. Well controlled as of 01/24/2019. 5. Diabetes, type 2. a. Controlled with hemoglobin A1c of 7.5. b. FBS 116 as of 04:16. 6. Hypothyroidism. 7. Large incarcerated ventral hernia. a. Presently asymptomatic. 8. Panniculitis. a. Required hospitalization from 12/24/2018 to 12/29/2018. b. Resolving now on oral antibiotics as of 12/29/2018. c. Resolved with no signs of recurrence as of 01/24/2019. 9. Depression, well controlled. 10. Fibromyalgia. a. Controlled. 11. Hyperlipidemia. 12. Seborrheic dermatitis involving the ears. a. Controlled. 13. Severe gait abnormality. a. Secondary to the massive obesity. b. Secondary to osteoarthritis of the knees. c. Improved as of 01/21/2019. 14. Severe osteoarthritis of the knees that are bone on bone, right worse than the left. a. Controlled as of 01/24/2019. 15. Moderate symptomatic arthritis of the left hip. a. Controlled as of 01/24/2019. 16. Gastroesophageal reflux disease. a. Mild increased symptoms on the Pepcid, previously controlled on Zantac and pantoprazole. b. Controlled on the pantoprazole as of 01/10/2019. REASON FOR ADMISSION: The patient is a 68-year-old morbidly obese white female , who has a history of hypertension, diabetes type 2 that is controlled with oral agents, chronic incarcerated ventral hernia that is asymptomatic, hypothyroidism, and severe arthritis of the knees and the hips with GE reflux. The patient resides in a mobile home by herself. She had been living there with a sister and brother who since . The home is in disrepair. She does not leave the home, is able to get around in the home using a walker and touching furniture. She is too big and cannot get up and down the stairs into her home. Her neighbors provide assistance and bring her food and she has a delivery service that also she can order from and will bring her food. The patient had a history of panniculitis and has not had any problem from this for quite some time. She developed a recurrence of this panniculitis; complicated by redness, pain, and fever prompting a hospitalization at [facility] from 12/24 to 12/29 for this panniculitis. This was treated with 5 days of IV vancomycin and Zosyn, and then switched to oral clindamycin. She was left very weak and deconditioned, and not able to care for herself and return to her mobile home. The patient was transferred to [facility] on 12/29/2018, for completion of her oral antibiotics and also for physical therapy and occupational therapy. HOSPITAL COURSE: The patient entered the hospital on 12/29/2018, into [facility] for purpose of physical therapy, occupational therapy, and to complete her course of clindamycin. The patient was very weak and required assistance with her transfers and ambulation. During her hospital stay, she worked with physical therapy and made excellent progress to where she was walking 70 to 80 feet 3 to 4 times a day using a rolling walker and with just standby assistance. She was transferring with just supervision or standby assistance at the time of her discharge. She had days where her therapy was limited by the pain in her knees. She had x-rays done of the knees, which showed severe arthritis of the right knee with moderate lateral compartment narrowing and severe medial compartment narrowing of the right knee. The x-ray of the left knee showed severe arthritis of the left knee, particularly involving the medial joint compartment and she had moderate arthritis of the left hip. The patient had hot packs used on the hips for this, she used tramadol as needed for pain, which helped. She was tried on a slow-tapering dose of steroids, started off on 20 mg daily for 5 days, and then tapering. This seemed to help and when she had increased pain, she would rest more and use the pain medication. Her diabetes showed good control. Her hemoglobin A1c was 7.5. Her FBS on the day prior to discharge was 118, day before 109 and on 01/21, 118. The patient's blood pressure was under good control. She completed her course of clindamycin. She had no recurrence of the panniculitis. She does have a large incarcerated ventral hernia that is asymptomatic and she does not wish to pursue any type of surgical repair. [employer] worked with the patient as her home situation is very, very poor and she does not have any help in the home, and her support for instrumental ADLs is depended upon hospital food service worker and neighbors. The patient explored entering an assisted living in a jail with the help of [employer] and the patient was found to be a good candidate for, and was accepted at [facility] in their jail. The patient was very agreeable to this and excited to move there. The patient was transferred to [facility] on 01/24/2019. There, she will continue PT and OT. She will complete her tapering dose of prednisone, which is almost complete. This patient's maximum weight was 440. She gradually has reduced her weight. Her discharge weight was 355. DISPOSITION: DIET: Consistent carbohydrate diet. ACTIVITIES: Up ad imer. Ambulate with the use of a walker. PT and OT to see and evaluate the patient. Glucometer checks 3 times a week, fasting. MEDICATIONS: 1. Acetaminophen 325 mg 2 every 4 hours as needed for pain. 2. Amlodipine 5 mg daily. 3. Aspirin 81 mg daily. 4. Tums 500 mg 2 every 4 hours p.r.n. indigestion. 5. Glucotrol 10 mg b.i.d. 6. Glucosamine Daily Complex tabs 1 daily. 7. Hydralazine 10 mg b.i.d. 8. Hydrochlorothiazide 12.5 mg daily. 9. Lantus 10 units subcu at bedtime. 10. Ketoconazole cream applied to the ears b.i.d. 11. Levothyroxine 175 mcg daily. 12. Losartan/HCT 100/12.5 daily. 13. Metformin 1000 mg b.i.d. 14. Ranitidine 150 mg b.i.d. 15. MiraLAX 17 g in 8 ounces water daily. 16. KCl 10 mEq b.i.d. 17. Crestor 40 mg daily. 18. Tramadol 50 mg 1 or 2 every 6 hours as needed. 19. Venlafaxine ER 150 mg daily. 20. Prednisone 5 mg 2 daily x2 days, then reduce to 5 mg daily for 5 days, and then discontinue. LABORATORY DATA: On 01/31/2019, please order a CBC, CMP, lipid panel and hemoglobin A1c, and then repeat these every 3 months. Please order a TSH every 6 months. FOLLOWUP: The patient will be seen in followup in 2 weeks. CODE STATUS: DNR. Job ID: [id number] MTDD
[2019-01-27] MEDS ORDERED: predniSONE 5 MG TAB PO SCH (08:00)
== END 2019-01-24 11:41 | DRG 607 ==
LOC: MADMS 17:22
PROVIDERS: ADMIT Family Medicine; ATTEND Family Medicine
DX: M79.3 Panniculitis, unspecified (principal); K43.6 Other and unspecified ventral hernia with obstruction, without gangrene; Z68.43 Body mass index [BMI] 50.0-59.9, adult; I10 Essential (primary) hypertension; E11.9 Type 2 diabetes mellitus without complications; Z66 Do not resuscitate; E66.01 Morbid (severe) obesity due to excess calories; E03.9 Hypothyroidism, unspecified; F32.9 Major depressive disorder, single episode, unspecified; E78.5 Hyperlipidemia, unspecified; K21.9 Gastro-esophageal reflux disease without esophagitis; M79.7 Fibromyalgia; M17.0 Bilateral primary osteoarthritis of knee; R26.9 Unspecified abnormalities of gait and mobility; L21.9 Seborrheic dermatitis, unspecified; R53.1 Weakness; R53.81 Other malaise; M16.12 Unilateral primary osteoarthritis, left hip; Z90.49 Acquired absence of other specified parts of digestive tract; Z90.89 Acquired absence of other organs; Z79.82 Long term (current) use of aspirin; Z79.84 Long term (current) use of oral hypoglycemic drugs; Z88.8 Allergy status to other drugs, medicaments and biological substances
CPT/HCPCS: 36415; 36416; 80053; 80061; 83036; 84443; 85025; 90471; 90670; 90686; G0008; G0009; J1650; J1815; J7512; Q0162

== ENCOUNTER 2021-05-24 18:27 | Emergency (ER) | payer MEDICARE, MEDICAID ==
[~2021-05-24 18:27] MED LIST: Sodium Chloride 0.9% 1,000 ML BAG ONE
[2021-05-24] MEDS ORDERED: cefTRIAXone\\ROCEPHIN 1 GM VIAL ONE ×2 (19:08→20:10)
[2021-05-24 19:26] LABS: #Basophils 0.1 thou/uL (0.0-0.2); #Eosinphils 0.1 thou/uL (0.0-0.7); #Lymphocytes 1.5 thou/uL (1.20-3.40); #Monocytes 1.7 thou/uL (0.11-0.59); #Neutrophils 11.6 thou/uL (1.40-6.50); %Basophils 0.7 % (0.0-1.0); %Eosinophils 0.7 % (0.0-10.0); %Lymphocytes 10.1 % (21.0-51.0); %Monocytes 11.5 % (0.0-10.0); Hemoglobin 11.3 g/dL (12.0-16.0); Mean Corpuscular HGB CONC 31.7 g/dL (32.0-36.0); Mean Corpuscular Hemoglobin 27.9 pg (27.0-31.0); Mean Corpuscular Volume 88.1 fL (78.0-98.0); Mean Platelet Volume 8.3 fL (7.4-10.4); Platelet Count 252 thou/uL (130-400); RBC Distribution Width 14.1 % (11.5-14.5); Red Blood Cell (RBC) Count 4.03 mill/uL (4.20-5.40)
[2021-05-24 19:43] LABS: Bilirubin Moderate (Negative); Blood, Urine Large (Negative); Clarity Clear (Clear); Glucose, Urine (Dipstick) 100 mg/dL (Negative); Ketone, Urine Trace mg/dL (Negative); Leukocyte Small (Negative); Nitrite Positive (Negative); Protein, Urine (Dipstick) > or equal to 300 mg/dL (Neg-Trace); Specific Gravity, Urine 1.025 (1.005-1.030)
[2021-05-24 19:56] LABS: Bacteria/HPF 3+ HPF (None Seen); WBC/HPF Greater than 50 HPF (0-3)
[2021-05-24 19:58] LABS: ALT (SGPT) 32 U/L (8-55); AST (SGOT) 71 U/L (5-34); Albumin 2.8 g/dL (3.4-4.8); Alkaline Phosphatase 76 U/L (40-110); Anion Gap 19 mmol/L (10-20); BUN (Urea Nitrogen) 48 mg/dL (9.8-20.1); Bilirubin, Total 0.5 mg/dL (0.2-1.2); CK (CPK) 596 U/L (29-168); Calc. Creatinine Clearance 0 mL/min (70-130); Calcium 8.7 mg/dL (7.8-10.44); Carbon Dioxide 21 mmol/L (23-31); Chloride 92 mmol/L (98-107); Globulin 3.8 g/dL (2.4-3.5); Glucose 117 mg/dL (80-115); Potassium 4.1 mmol/L (3.5-5.1); Protein, Total 6.6 g/dL (5.8-8.1); Sodium 128 mmol/L (136-145)
[2021-05-24] MEDS ORDERED: Sodium Chloride 0.9% 100 ML ONE (20:04)
[2021-05-24] MEDS ORDERED: cefTRIAXone\\ROCEPHIN 2 GM VIAL ONE (20:05)
[2021-05-25 00:38] LABS: Anion Gap 17 mmol/L (10-20); BUN (Urea Nitrogen) 50 mg/dL (9.8-20.1); Calc. Creatinine Clearance 0 mL/min (70-130); Calcium 8.6 mg/dL (7.8-10.44); Carbon Dioxide 22 mmol/L (23-31); Chloride 94 mmol/L (98-107); Glucose 93 mg/dL (80-115); Potassium 4.1 mmol/L (3.5-5.1); Sodium 129 mmol/L (136-145)
[2021-05-25 06:27] LABS: SARS-CoV-2 NAA Rapid Test Not Detected (NotDetected)
== END 2021-05-25 05:45 | disposition short-term general hospital (02) ==
LOC: MADERS 18:27
DX: E87.1 Hypo-osmolality and hyponatremia (principal); N17.9 Acute kidney failure, unspecified; N10 Acute pyelonephritis; I10 Essential (primary) hypertension; E78.5 Hyperlipidemia, unspecified; E78.00 Pure hypercholesterolemia, unspecified; Z20.822 Contact with and (suspected) exposure to COVID-19
CPT/HCPCS: 74176; 80048; 80053; 82550; 83605; 84484; 85025; 87040; 87086; U0002; 51702; 81003; 81015; 96365; 96366; J0696; J3490; J7050

== ENCOUNTER 2023-02-08 22:29 | Emergency (ER) | payer MEDICARE, MEDICAID ==
[2023-02-08 23:06] LABS: #Basophils 0.1 thou/uL (0.0-0.2); #Eosinphils 0.2 thou/uL (0.0-0.7); #Monocytes 0.6 thou/uL (0.11-0.59); %Eosinophils 1.9 % (0.0-10.0); %Lymphocytes 34.5 % (21.0-51.0); %Monocytes 6.5 % (0.0-10.0); %Neutrophils 56.2 % (42.0-75.0); Mean Corpuscular HGB CONC 31.9 g/dL (32.0-36.0); Mean Corpuscular Hemoglobin 28.6 pg (27.0-31.0); Mean Corpuscular Volume 89.6 fl (78.0-98.0); Mean Platelet Volume 9.3 fL (7.4-10.4); Platelet Count 216 10x3/uL (130-400); RBC Distribution Width 13.9 % (11.5-14.5); Red Blood Cell (RBC) Count 5.24 mill/uL (4.20-5.40); White Blood Cell (WBC) Count 8.8 10x3/uL (4.8-10.8)
[2023-02-08 23:29] LABS: ALT (SGPT) 15 U/L (8-55); AST (SGOT) 27 U/L (5-34); Albumin 3.8 g/dL (3.4-4.8); Alkaline Phosphatase 79 U/L (40-110); Anion Gap 15 mmol/L (10-20); BUN (Urea Nitrogen) 15 mg/dL (9.8-20.1); Bilirubin, Total 0.3 mg/dL (0.2-1.2); Calc. Creatinine Clearance 0 mL/min (70-130); Calcium 9.5 mg/dL (7.8-10.44); Carbon Dioxide 23 mmol/L (23-31); Chloride 104 mmol/L (98-107); Estimated GFR 70; Globulin 3.5 g/dL (2.4-3.5); Glucose 172 mg/dL (80-115); Magnesium 1.9 mg/dL (1.6-2.6); Protein, Total 7.3 g/dL (5.8-8.1); Sodium 138 mmol/L (136-145)
[2023-02-08] MEDS ORDERED: diphenhydrAMINE 50 MG/ML VIAL ONE (23:37)
[2023-02-08] MEDS ORDERED: Metoclopramide HCl 10 MG/2 ML VIAL ONE (23:37)
[2023-02-08] MEDS ORDERED: Sodium Chloride 0.9% 50 ML ONE (23:37)
[2023-02-08] MEDS ORDERED: Ketorolac Tromethamine 30 MG/ML VIAL ONE (23:37)
[2023-02-08] MEDS ORDERED: Sodium Chloride 0.9% 500 ML ONE (23:38)
[2023-02-09 00:01] LABS: Bilirubin Negative (Negative); Blood, Urine Negative (Negative); Clarity Cloudy (Clear); Glucose, Urine (Dipstick) Negative (Negative); Ketone, Urine Negative (Negative); Leukocyte Trace (Negative); Nitrite Negative (Negative); Protein, Urine (Dipstick) Trace mg/dL (Neg-Trace); pH, Urine 7.5 (5.0-9.0)
[2023-02-09 00:06] LABS: Bacteria/HPF 4+ HPF (None Seen); RBC/HPF 0-3 HPF (0-3); Transitional Epithelial 0-3 HPF (None Seen); WBC/HPF 21-50 HPF (0-3)
[2023-02-09] MEDS ORDERED: cefTRIAXone (ROCEPHIN) 2 GM VIAL ONE (00:18)
[2023-02-09] MEDS ORDERED: Sodium Chloride 0.9% 100 ML ONE (00:18)
[2023-02-09 01:31] LABS: Troponin I 0.018 ng/mL (< 0.028)
== END 2023-02-09 02:08 ==
LOC: MADERS 22:29
DX: R51.9 Headache, unspecified (principal); R82.71 Bacteriuria; I10 Essential (primary) hypertension; E11.9 Type 2 diabetes mellitus without complications; E03.9 Hypothyroidism, unspecified; E78.00 Pure hypercholesterolemia, unspecified; Z79.84 Long term (current) use of oral hypoglycemic drugs; Z79.899 Other long term (current) drug therapy; Z79.82 Long term (current) use of aspirin
CPT/HCPCS: 70450; 71045; 80053; 81003; 81015; 83735; 83880; 84484; 85025; 87086; 93005; 96365; 96367; 96375; J0696; J1200; J1885; J2765; J3490; J7030

== ENCOUNTER 2023-06-08 10:10 | Emergency (ER) | payer MEDICARE, MEDICAID ==
[2023-06-08 11:49] LABS: Hematocrit 38.1 % (36.0-47.0); Hemoglobin 12.6 g/dL (12.0-16.0); Mean Corpuscular HGB CONC 32.9 g/dL (32.0-36.0); Mean Corpuscular Hemoglobin 30.2 pg (27.0-31.0); Mean Corpuscular Volume 91.7 fl (78.0-98.0); Mean Platelet Volume 9.3 fL (7.4-10.4); Platelet Count 175 10x3/uL (130-400); RBC Distribution Width 13.6 % (11.5-14.5); Red Blood Cell (RBC) Count 4.15 mill/uL (4.20-5.40); White Blood Cell (WBC) Count 17.1 10x3/uL (4.8-10.8)
[2023-06-08 11:58] LABS: ALT (SGPT) 13 U/L (8-55); AST (SGOT) 24 U/L (5-34); Alkaline Phosphatase 62 U/L (40-110); Anion Gap 17 mmol/L (10-20); Anisocytosis SLIGHT = 6-15 cells (100X) (0-5/hpf); BUN (Urea Nitrogen) 28 mg/dL (9.8-20.1); Band 4 % (5-11); Bilirubin, Total 0.8 mg/dL (0.2-1.2); Calc. Creatinine Clearance 0 mL/min (70-130); Calcium 8.8 mg/dL (7.8-10.44); Carbon Dioxide 26 mmol/L (23-31); Chloride 97 mmol/L (98-107); Eosinophils 1 % (0-10); Estimated GFR 33; Globulin 3.6 g/dL (2.4-3.5); Glucose 190 mg/dL (80-115); Lymphocytes 12 % (21-51); MDiff Complete? YES; Manual Diff?? YES; Monocytes 4 % (0-10); Neutrophil 79 % (42-75); Platelet Adequacy Comment Appears Adequate; Potassium 4.5 mmol/L (3.5-5.1); Protein, Total 6.6 g/dL (5.8-8.1); Sodium 135 mmol/L (136-145)
[2023-06-08] MEDS ORDERED: Cefepime 2 GM VIAL ONE (11:58)
[2023-06-08] MEDS ORDERED: Sodium Chloride 0.9% 100 ML ONE (11:58)
[2023-06-08] MEDS ORDERED: Dextrose 5% in Water 250 ML ONE (11:58)
[2023-06-08] MEDS ORDERED: Vancomycin 1 GM VIAL ONE (11:58)
[2023-06-08 12:09] LABS: Bilirubin Moderate (Negative); Blood, Urine Large (Negative); Clarity Cloudy (Clear); Glucose, Urine (Dipstick) Negative (Negative); Ketone, Urine Trace mg/dL (Negative); Leukocyte Trace (Negative); Nitrite Positive (Negative); Protein, Urine (Dipstick) > or equal to 300 mg/dL (Neg-Trace)
[2023-06-08 12:10] LABS: CAUTI Indications for Culture Dysuria,urgency,freq; Specific Gravity, Urine 1.028 (1.002-1.036)
[2023-06-08 12:11] LABS: Urine Culture Reflex No No
[2023-06-08 12:12] LABS: Bacteria/HPF 2+ HPF (None Seen)
[2023-06-08] MEDS ORDERED: Sodium Chloride 0.9% 2,000 ML ONE (12:33)
[2023-06-08] MEDS ORDERED: traMADol HCl 50 MG TAB ONE (13:34)
[2023-06-08] MEDS ORDERED: Sodium Chloride 0.9% 1,000 ML ONE ×2 (15:22→17:27)
== END 2023-06-08 18:10 | disposition short-term general hospital (02) ==
LOC: MADERS 10:10
DX: A41.9 Sepsis, unspecified organism (principal); M79.3 Panniculitis, unspecified; N39.0 Urinary tract infection, site not specified; I10 Essential (primary) hypertension; E11.9 Type 2 diabetes mellitus without complications; E03.9 Hypothyroidism, unspecified; E78.00 Pure hypercholesterolemia, unspecified; Z79.84 Long term (current) use of oral hypoglycemic drugs; Z79.899 Other long term (current) drug therapy; Z79.82 Long term (current) use of aspirin
CPT/HCPCS: 36415; 51701; 80053; 81001; 83605; 85025; 87040; 87077; 87086; 93005; 96361; 96365; 96367; J0692; J3370; J7050; J7070

== ENCOUNTER 2024-02-15 23:25 | Emergency (ER) | payer MEDICARE, OTHER ==
[~2024-02-15 23:25] MED LIST changes: +Iopamidol 370 76% 100 ML VIAL ONE; -Sodium Chloride 0.9% 1,000 ML BAG ONE
[2024-02-16 00:13] LABS: INR-International Normal Ratio 1.1; Prothrombin Time 14.6 sec (12.0-14.7)
[2024-02-16 00:14] LABS: PTT 29.1 sec (22.9-36.1)
[2024-02-16 00:20] LABS: #Basophils 0.1 thou/uL (0.0-0.2); #Eosinphils 0.2 thou/uL (0.0-0.7); #Lymphocytes 2.4 thou/uL (1.20-3.40); #Monocytes 0.5 thou/uL (0.11-0.59); #Neutrophils 4.4 thou/uL (1.40-6.50); %Basophils 0.8 % (0.0-1.0); %Eosinophils 2.4 % (0.0-10.0); %Lymphocytes 31.6 % (21.0-51.0); %Neutrophils 58.2 % (42.0-75.0); Anisocytosis SLIGHT = 6-15 cells (100X) (0-5/hpf); Hematocrit 36.4 % (36.0-47.0); Hemoglobin 10.1 g/dL (12.0-16.0); MDiff Complete? YES; Mean Corpuscular HGB CONC 27.8 g/dL (32.0-36.0); Mean Corpuscular Hemoglobin 21.1 pg (27.0-31.0); Mean Corpuscular Volume 75.9 fl (78.0-98.0); Mean Platelet Volume 7.3 fL (7.4-10.4); Ovalocytes SLIGHT = 2-5 cells (100X) (0-1/hpf); Platelet Adequacy Comment Appears Adequate; Platelet Count 251 10x3/uL (130-400); Red Blood Cell (RBC) Count 4.79 mill/uL (4.20-5.40); White Blood Cell (WBC) Count 7.6 10x3/uL (4.8-10.8)
[2024-02-16 00:23] LABS: ALT (SGPT) 13 U/L (8-55); AST (SGOT) 18 U/L (5-34); Albumin 3.6 g/dL (3.4-4.8); Alkaline Phosphatase 72 U/L (40-110); Anion Gap 13 mmol/L (10-20); BUN (Urea Nitrogen) 16 mg/dL (9.8-20.1); Bilirubin, Total 0.2 mg/dL (0.2-1.2); Calc. Creatinine Clearance 0 mL/min (70-130); Calcium 8.8 mg/dL (7.8-10.44); Carbon Dioxide 25 mmol/L (23-31); Chloride 103 mmol/L (98-107); Estimated GFR 59; Globulin 3.3 g/dL (2.4-3.5); Glucose 219 mg/dL (83-110); Potassium 4.3 mmol/L (3.5-5.1); Protein, Total 6.9 g/dL (5.8-8.1); Sodium 137 mmol/L (136-145)
[2024-02-16 09:49] LABS: Bilirubin Negative (Negative); Blood, Urine Negative (Negative); CAUTI Indications for Culture Dysuria,urgency,freq; Clarity Clear (Clear); Glucose, Urine (Dipstick) Negative (Negative); Ketone, Urine Negative (Negative); Leukocyte Negative (Negative); Nitrite Negative (Negative); Protein, Urine (Dipstick) Negative (Neg-Trace); RBC/HPF 0-3 HPF (0-3); Squamous Epithelial 0-3 HPF (0-3); Urobilinogen 0.2 mg/dL (Less than 2); WBC/HPF 0-3 HPF (0-3)
[2024-02-16 09:50] LABS: Bacteria/HPF Rare-Few HPF (None Seen); Urine Culture Reflex No No
== END 2024-02-16 03:56 | disposition short-term general hospital (02) ==
LOC: MADERS 23:25
DX: K43.9 Ventral hernia without obstruction or gangrene (principal); E78.5 Hyperlipidemia, unspecified; I10 Essential (primary) hypertension; E11.9 Type 2 diabetes mellitus without complications; E03.9 Hypothyroidism, unspecified; Z79.899 Other long term (current) drug therapy
CPT/HCPCS: 74177; 80053; 81001; 85025; 85610; 85730; Q9967

== ENCOUNTER 2025-08-21 09:01 | Outpatient (CLI) | payer MEDICARE, MEDICAID ==
[2025-08-21 09:24] LABS: #Basophils 0.1 thou/uL (0.0-0.2); #Eosinophils 0.2 thou/uL (0.0-0.7); #Lymphocytes 1.8 thou/uL (1.20-3.40); #Monocytes 0.5 thou/uL (0.11-0.59); #Neutrophils 5.0 thou/uL (1.40-6.50); %Basophils 0.9 % (0.0-1.0); %Eosinophils 2.9 % (0.0-10.0); %Lymphocytes 23.3 % (21.0-51.0); %Monocytes 7.0 % (0.0-10.0); %Neutrophils 65.9 % (42.0-75.0); Hematocrit 36.5 % (36.0-47.0); Hemoglobin 9.9 g/dL (12.0-16.0); Mean Corpuscular Hemoglobin 20.9 pg (27.0-31.0); Mean Corpuscular Volume 77.1 fl (78.0-98.0); Platelet Count 276 10x3/uL (130-400); Red Blood Cell (RBC) Count 4.74 mill/uL (4.20-5.40); White Blood Cell (WBC) Count 7.7 10x3/uL (4.8-10.8)
[2025-08-21 09:35] LABS: ALT (SGPT) Less than 7 U/L (Less than 34); AST (SGOT) 19 U/L (11-34); Albumin 3.5 g/dL (3.1-4.5); Alkaline Phosphatase 70 U/L (40-110); Anion Gap 16 mmol/L (10-20); BUN (Urea Nitrogen) 17 mg/dL (9.8-20.1); Bilirubin, Total 0.3 mg/dL (0.3-1.2); Calc. Creatinine Clearance 0 mL/min (70-130); Calcium 9.1 mg/dL (7.8-10.44); Carbon Dioxide 29 mmol/L (23-31); Cardiac Risk 2.8 (Less than 4.5); Chloride 100 mmol/L (98-107); Cholesterol 114 mg/dl (< 200 Desired); Globulin 3.7 g/dL (2.4-3.5); Glucose 96 mg/dL (83-110); HDL Cholesterol 41 mg/dL (>60 Neg Risk); LDL Cholesterol, Calculated 55 mg/dL; Potassium 4.5 mmol/L (3.5-5.1); Sodium 140 mmol/L (136-145); Triglycerides 90 mg/dL (Less than 150)
== END 2025-08-21 09:02 | disposition home or self-care (01) ==
LOC: MADLAB 09:01
PROVIDERS: ATTEND Nurse Practitioner Family
DX: E11.9 Type 2 diabetes mellitus without complications (principal); I48.0 Paroxysmal atrial fibrillation
CPT/HCPCS: 36415; 80053; 80061; 84443; 85025